=== PATIENT | female | born 1955 | race Hispanic/Latino ===

== ENCOUNTER 2017-01-20 17:14 | Inpatient (IN) | payer MEDICAID ==
[2017-01-20] MEDS ORDERED: ZEMURON IV ONE (17:15)
[2017-01-20] MEDS ORDERED: KETALAR ONE (17:15)
[2017-01-20] MEDS ORDERED: ATIVAN IV PRN (17:31)
[2017-01-20] MEDS ORDERED: VASELINE LIP THERAPY TP PRN (17:31)
[2017-01-20] MEDS ORDERED: ARTIFICIAL TEARS OPHTH OINT OU PRN (17:31)
--- NOTE | 2017-01-20 17:34 | Emergency Department Report ---
ED General Adult HPI - General Chief complaint: Dyspnea/Respdistress Stated complaint: RESPIRATORY ARREST Time Seen by Provider: 01/20/17 17:30 Source: EMS (verbal report received from EMS.ems notes not available at time of chart dictation) Mode of arrival: Stretcher Limitations: Other - History of Present Illness Initial comments: This is a 50-year-old female who was brought to the hospital by EMS receiving bag valve mask ventilation. Apparently she choked. No family is available at this time for collateral information. EMS does not exhibit there was, but they are not certain. EMS reported a "normal" fingerstick in the field. Upon arrival to the ER, the patient was obtunded, breathing sonorously, requiring bag -valve-mask ventilation. Her eyes would not open spontaneously, and she was initially not moving. Patient was set up for rapid sequence intubation. Prior to induction, patient was noted to be moving 4 extremities, it was then introduced with 100 mg of ketamine. She was then paralyzed with 100 mg of rocuronium. A Duong 4 video laryngoscope was inserted, and nonspecific particulate food material was noted in the hypopharynx, however no large foreign bodies were noted. A 7.5 endotracheal tube was then inserted under direct guidance, with appropriate post intubation change. Patient is currently intubated and paralyzed, laboratory studies are pending, CT scan is pending, x-ray of the chest and EKG are pending, no further information is available at this time. -: unknown Consistency: constant Improves with: none Worsens with: none - Related Data Allergies Allergy/AdvReac Type Severity Reaction Status Date / Time Unable to Assess Allergy Unverified 01/20/17 17:42 ED Review of Systems ROS: Stated complaint: RESPIRATORY ARREST Other details as noted in HPI Comment: Unobtainable due to pts medical conditions ED Past Medical Hx - Past Medical History Previous Medical History?: Yes Hx Hypertension: Yes Hx CVA: Yes - Social History Smoking Status: Unknown if ever smoked ED Physical Exam - General Limitations: Altered Mental Status, Other General appearance: obtunded - Head Head exam: Present: atraumatic, normocephalic - Eye Eye exam: Present: normal appearance, other (the bilateral pupils are 2-3 mm, and have minimal reactivity to light) - ENT ENT exam: Present: normal exam, mucous membranes moist, TM's normal bilaterally , normal external ear exam - Neck Neck exam: Present: normal inspection. Absent: tenderness - Respiratory Respiratory exam: Present: respiratory distress, rhonchi - Cardiovascular Cardiovascular Exam: Present: normal rhythm, tachycardia, normal heart sounds. Absent: systolic murmur, diastolic murmur, rubs, gallop - GI/Abdominal GI/Abdominal exam: Present: soft, normal bowel sounds. Absent: distended, tenderness, guarding, rebound, rigid, pulsatile mass - Rectal Rectal exam: Present: normal inspection - External exam: Present: normal external exam - Extremities Exam Extremities exam: Present: normal inspection, other (the compartments are soft. 2+ pulses noted in the upper and lower extremities). Absent: calf tenderness - Back Exam Back exam: Present: normal inspection. Absent: paraspinal tenderness, vertebral tenderness - Neurological Exam Neurological exam: Present: altered, other (patient moving 4 extremities prior to intubation) - Psychiatric Psychiatric exam: Present: other (patient is altered and obtunded) - Skin Skin exam: Present: warm, dry, intact, normal color. Absent: rash ED Course Vital Signs 01/20/17 01/20/17 01/20/17 17:15 17:30 18:19 Temperature 97.1 F L Pulse Rate 105 H 88 Respiratory 20 20 Rate Blood Pressure 130/45 Blood Pressure 122/92 [Left] O2 Sat by Pulse 100 98 95 Oximetry 01/20/17 01/20/17 01/20/17 18:21 18:25 19:05 Temperature Pulse Rate 97 H 96 H 93 H Respiratory 20 20 20 Rate Blood Pressure 137/93 133/91 89/60 Blood Pressure [Left] O2 Sat by Pulse 95 96 Oximetry 01/20/17 01/20/17 01/20/17 19:10 19:15 19:20 Temperature Pulse Rate 91 H 91 H 91 H Respiratory 20 20 20 Rate Blood Pressure 95/62 102/70 99/64 Blood Pressure [Left] O2 Sat by Pulse Oximetry 01/20/17 01/20/17 01/20/17 19:25 19:27 19:30 Temperature Pulse Rate 95 H 92 H 91 H Respiratory 20 20 Rate Blood Pressure 91/61 91/61 99/64 Blood Pressure [Left] O2 Sat by Pulse 100 Oximetry 01/20/17 01/20/17 01/20/17 19:35 19:40 19:45 Temperature Pulse Rate 91 H 90 89 Respiratory 20 20 20 Rate Blood Pressure 99/67 98/65 95/64 Blood Pressure [Left] O2 Sat by Pulse Oximetry 01/20/17 01/20/17 01/20/17 19:50 19:55 20:00 Temperature Pulse Rate 89 97 H 107 H Respiratory 20 20 20 Rate Blood Pressure 105/69 105/69 167/107 Blood Pressure [Left] O2 Sat by Pulse 97 100 Oximetry 01/20/17 01/20/17 01/20/17 20:05 20:36 20:40 Temperature Pulse Rate 115 H 126 H 120 H Respiratory 22 20 20 Rate Blood Pressure 176/117 173/111 154/94 Blood Pressure [Left] O2 Sat by Pulse 100 98 98 Oximetry 01/20/17 01/20/17 01/20/17 20:45 20:50 20:55 Temperature Pulse Rate 116 H 102 H 97 H Respiratory 20 20 20 Rate Blood Pressure 165/105 124/77 124/78 Blood Pressure [Left] O2 Sat by Pulse 100 100 Oximetry 01/20/17 01/20/17 01/20/17 21:00 21:05 21:10 Temperature Pulse Rate 94 H 92 H 91 H Respiratory 20 20 20 Rate Blood Pressure 127/78 122/80 117/76 Blood Pressure [Left] O2 Sat by Pulse Oximetry 01/20/17 01/20/17 01/20/17 21:15 21:20 21:25 Temperature Pulse Rate 89 88 88 Respiratory 20 20 20 Rate Blood Pressure 120/77 127/79 121/76 Blood Pressure [Left] O2 Sat by Pulse Oximetry 01/20/17 01/20/17 01/20/17 21:30 21:35 21:40 Temperature Pulse Rate 88 87 86 Respiratory 20 20 20 Rate Blood Pressure 126/79 129/80 126/78 Blood Pressure [Left] O2 Sat by Pulse Oximetry 01/20/17 01/20/17 01/20/17 21:45 21:50 21:55 Temperature Pulse Rate 87 87 85 Respiratory 20 20 20 Rate Blood Pressure 127/81 128/80 127/75 Blood Pressure [Left] O2 Sat by Pulse Oximetry 01/20/17 01/20/17 01/20/17 22:00 22:05 22:10 Temperature Pulse Rate 84 96 H 109 H Respiratory 20 20 17 Rate Blood Pressure 128/76 158/80 164/92 Blood Pressure [Left] O2 Sat by Pulse 99 100 Oximetry 01/20/17 01/20/17 01/20/17 22:15 22:20 22:25 Temperature Pulse Rate 99 H 93 H 93 H Respiratory 20 20 20 Rate Blood Pressure 131/83 126/82 131/86 Blood Pressure [Left] O2 Sat by Pulse 100 Oximetry 01/20/17 01/20/17 01/20/17 22:30 22:35 22:40 Temperature Pulse Rate 91 H 91 H 88 Respiratory 20 20 20 Rate Blood Pressure 130/82 125/80 123/78 Blood Pressure [Left] O2 Sat by Pulse 100 Oximetry 01/20/17 01/20/17 01/20/17 22:45 22:50 22:55 Temperature Pulse Rate 87 96 H 93 H Respiratory 20 20 20 Rate Blood Pressure 127/79 152/91 149/89 Blood Pressure [Left] O2 Sat by Pulse 100 100 100 Oximetry 01/20/17 01/20/17 01/20/17 23:00 23:04 23:05 Temperature Pulse Rate 88 87 88 Respiratory 20 20 Rate Blood Pressure 132/80 132/80 125/79 Blood Pressure [Left] O2 Sat by Pulse 100 100 100 Oximetry 01/20/17 01/20/17 01/20/17 23:10 23:15 23:20 Temperature Pulse Rate 88 85 86 Respiratory 20 20 20 Rate Blood Pressure 129/79 135/81 133/85 Blood Pressure [Left] O2 Sat by Pulse 100 100 Oximetry 01/20/17 01/20/17 01/20/17 23:25 23:30 23:35 Temperature Pulse Rate 85 84 85 Respiratory 20 20 21 Rate Blood Pressure 139/85 141/80 146/84 Blood Pressure [Left] O2 Sat by Pulse 100 100 Oximetry - Reevaluation(s) Reevaluation #1: 01/20/17 17:41 Differential diagnosis, including but not limited to: Intracranial injury, hypoxic arrest, pneumonitis, pneumonia, foreign body, electrolyte derangement, urinary tract infection Assessment and plan: 50-year-old female who is intubated status post respiratory arrest. She will be ventilated lung protective strategy CT scan of the brain, cervical spine, chest pending, laboratory studies, EKG, ancillary studies pending. I will discuss with critical care once all of her data points have returned. Reevaluation #2: 01/20/17 20:03 Laboratory studies reviewed and are appreciated. Urinalysis suggests a urinary tract infection. Patient had transient hypotension, IV fluids ordered. CT scan is still pending. ABG 2 has demonstrated hypoxemia, patient will have FiO2 up titrated to 100%. Reevaluation #3: 01/20/17 21:[address] scan of the brain is negative Reevaluation #4: 01/20/17 21:34 CT scan of the chest demonstrates chronic emphysematous changes. Reevaluation #5: 01/20/17 21:40 Dr Lopez accepts patient to the medical service - Consultations Consultation #1: 01/20/17 19:25 Case is discussed with critical care physician on-call, Dr. Heart, who agrees with plan, he will see the patient in consultation. - EJ/Peripheral Line Neck L Time Out Performed: No (emergency) Indications: multiple IV sites needed Skin Cleansed in Sterile Fashion: Yes Size: 18 Dressing Placed: Tegaderm Patient Tolerated Procedure: well - Intubation Time Out Performed: No (emergency) Sedative: Ketamine Mg Given: 100 Paralytic: Rocuronium Mg Given: 100 Laryngoscope: fiberoptic video scope Size: 4 Assist Device Used: fiberoptic device ET Tube Size: 7.5 Tube Secured Depth (cm): 23 Tube Secured Location: lips Tube Placement Confirmation: visualized tube passing t Patient Tolerated Procedure: well Intubation Complications: none Additional Comments: Patient is placed on a nasal cannula, 15 L/m. Perceives [id number] ventilation, and does not desaturate. Most likely aspirated prior to intubation. ED Medical Decision Making - Lab Data Result diagrams: 01/20/17 17:55 01/20/17 17:22 Vital Signs 01/20/17 01/20/17 17:15 17:30 Temperature 97.1 F L Pulse Rate 105 H 88 Respiratory 20 Rate Blood Pressure 130/45 Blood Pressure 122/92 [Left] O2 Sat by Pulse 100 98 Oximetry Lab Results 01/20/17 01/20/17 01/20/17 Range/Units 17:22 17:22 17:22 WBC (4.5-11.0) K/mm3 RBC (3.65-5.03) M/mm3 Hgb (10.1-14.3) gm/dl Hct (30.3-42.9) % MCV (79-97) fl MCH (28-32) pg MCHC (30-34) % RDW (13.2-15.2) % Plt Count (140-440) K/mm3 Lymph % (Auto) (13.4-35.0) % Towns % (Auto) (0.0-7.3) % Eos % (Auto) (0.0-4.3) % Baso % (Auto) (0.0-1.8) % Lymph # (1.2-5.4) K/mm3 Towns # (0.0-0.8) K/mm3 Eos # (0.0-0.4) K/mm3 Baso # (0.0-0.1) K/mm3 Seg Neutrophils % (40.0-70.0) % Seg Neutrophils # (1.8-7.7) K/mm3 Lactic Acid 1.40 (0.7-2.0) mmol/L Troponin T < 0.010 (0.00-0.029) ng/mL Salicylates < 0.3 L (2.8-20.0) mg/dL Acetaminophen (10.0-30.0) ug/mL Plasma/Serum Alcohol (0-0.07) gm% Blood Type 01/20/17 01/20/17 01/20/17 Range/Units 17:22 17:22 17:55 WBC 4.1 L (4.5-11.0) K/mm3 RBC 4.06 (3.65-5.03) M/mm3 Hgb 11.6 (10.1-14.3) gm/dl Hct 36.2 (30.3-42.9) % MCV 89 (79-97) fl MCH 29 (28-32) pg MCHC 32 (30-34) % RDW 15.6 H (13.2-15.2) % Plt Count 179 (140-440) K/mm3 Lymph % (Auto) 20.2 (13.4-35.0) % Towns % (Auto) 8.9 H (0.0-7.3) % Eos % (Auto) 2.1 (0.0-4.3) % Baso % (Auto) 0.4 (0.0-1.8) % Lymph # 0.8 L (1.2-5.4) K/mm3 Towns # 0.4 (0.0-0.8) K/mm3 Eos # 0.1 (0.0-0.4) K/mm3 Baso # 0.0 (0.0-0.1) K/mm3 Seg Neutrophils % 68.4 (40.0-70.0) % Seg Neutrophils # 2.8 (1.8-7.7) K/mm3 Lactic Acid (0.7-2.0) mmol/L Troponin T (0.00-0.029) ng/mL Salicylates (2.8-20.0) mg/dL Acetaminophen < 15.0 (10.0-30.0) ug/mL Plasma/Serum Alcohol < 0.01 (0-0.07) gm% Blood Type 01/20/17 Range/Units 17:55 WBC (4.5-11.0) K/mm3 RBC (3.65-5.03) M/mm3 Hgb (10.1-14.3) gm/dl Hct (30.3-42.9) % MCV (79-97) fl MCH (28-32) pg MCHC (30-34) % RDW (13.2-15.2) % Plt Count (140-440) K/mm3 Lymph % (Auto) (13.4-35.0) % Towns % (Auto) (0.0-7.3) % Eos % (Auto) (0.0-4.3) % Baso % (Auto) (0.0-1.8) % Lymph # (1.2-5.4) K/mm3 Towns # (0.0-0.8) K/mm3 Eos # (0.0-0.4) K/mm3 Baso # (0.0-0.1) K/mm3 Seg Neutrophils % (40.0-70.0) % Seg Neutrophils # (1.8-7.7) K/mm3 Lactic Acid (0.7-2.0) mmol/L Troponin T (0.00-0.029) ng/mL Salicylates (2.8-20.0) mg/dL Acetaminophen (10.0-30.0) ug/mL Plasma/Serum Alcohol (0-0.07) gm% Blood Type A POSITIVE - Radiology Data Radiology results: image reviewed interpreted by me: X-ray the chest demonstrates no obvious foreign body, appropriate position of endotracheal tube and orogastric tube Critical Care Time: Yes Critical care time in (mins) excluding proc time.: 45 Critical care attestation.: If time is entered above; I have spent that time in minutes in the direct care of this critically ill patient, excluding procedure time. ED Disposition Clinical Impression: Respiratory arrest Disposition: DC-09 OP ADMIT IP TO THIS HOSP Is pt being admited?: Yes Condition: Critical
[2017-01-20 17:48] LABS: Urine Drugs of Abuse Note Disclamer
[2017-01-20] MEDS ORDERED: NACL 0.9% 500 ML IV SCH (18:00)
[2017-01-20 18:10] LABS: Basophils % (Auto) 0.4 % (0.0-1.8); Eosinophils % (Auto) 2.1 % (0.0-4.3); Hematocrit 36.2 % (30.3-42.9); Hemoglobin 11.6 gm/dl (10.1-14.3); Mean Corpuscular HGB Conc 32 % (30-34); Mean Corpuscular Hemoglobin 29 pg (28-32); Mean Corpuscular Volume 89 fl (79-97); Platelet Count 179 K/mm3 (140-440); Red Blood Count 4.06 M/mm3 (3.65-5.03); Red Cell Distribution Width 15.6 % (13.2-15.2); White Blood Count 4.1 K/mm3 (4.5-11.0)
[2017-01-20] MEDS: fentaNYL DRIP Premix 2,000 MCG/100 ML BAG IV SCH (18:16)
[2017-01-20 18:20] LABS: Bilirubin,Urine NEG (Negative); Blood,Urine NEG (Negative); Ketones,Urine NEG (Negative); Leukocyte Esterase,Urine LG (Negative); Nitrite,Urine NEG (Negative)
[2017-01-20 18:23] LABS: WBC,Urine > 182.0 /HPF (0.0-6.0)
[2017-01-20 18:38] LABS: ISTAT Base Excess 1; ISTAT HCO3 26.4; ISTAT PCO2 45.7 (35-45); ISTAT PO2 69 (80-105); ISTAT SO2 93; ISTAT TCO2 28
[2017-01-20 18:49] LABS: INR 1.03 (0.87-1.13)
[2017-01-20 18:50] LABS: Partial Thromboplastin Time 37.7 Sec. (24.2-36.6)
[2017-01-20] MEDS ORDERED: ROCEPHIN/NS 1 GM/50 ML 1 GM/50 ML BAG IV ONE (18:53)
[2017-01-20 19:08] LABS: Alanine Aminotransferase 24 units/L (7-56); Albumin 3.6 g/dL (3.9-5); Albumin/Globulin Ratio 1.1 %; Alkaline Phosphatase 101 units/L (35-129); Anion Gap 17 mmol/L; BUN/Creatinine Ratio 20; Blood Urea Nitrogen 16 mg/dL (7-17); Calcium 8.7 mg/dL (8.4-10.2); Carbon Dioxide 26 mmol/L (22-30); Chloride 96.7 mmol/L (98-107); Creatine Kinase 47 units/L (30-135); Glucose 140 mg/dL (65-100); Potassium 4.1 mmol/L (3.6-5.0); Sodium 136 mmol/L (137-145); Total Protein 6.9 g/dL (6.3-8.2)
[2017-01-20] MEDS ORDERED: NACL 0.9% 1000 ML 2,000 ML IV ONE (19:08)
[2017-01-20 20:05] LABS: ISTAT Base Excess 2; ISTAT HCO3 27.5; ISTAT PCO2 48.5 (35-45); ISTAT PH 7.362 (7.35-7.45); ISTAT PO2 64 (80-105); ISTAT SO2 91; ISTAT TCO2 29
--- NOTE | 2017-01-20 20:45 | Cat Scan Report ---
FINAL REPORT PROCEDURE: CT HEAD/BRAIN WO CON TECHNIQUE: Computerized tomography of the head was performed without contrast material. HISTORY: Altered Mental Status COMPARISON: No prior studies are available for comparison. FINDINGS: Limited by streak and motion artifact. Skull and scalp: Normal. Paranasal sinuses: Mucosal thickening right maxillary sinus.. Ventricles and subarachnoid spaces: Normal. Cerebrum: No evidence of hemorrhage, acute infarction or mass . Cerebellum and brainstem: No evidence of hemorrhage, acute infarction or mass. Vasculature: Normal. Comments: Portions of NG tube endotracheal tube seen IMPRESSION: No definite evidence of acute intracranial pathology. If symptoms and or concern persists recommend MRI.
--- NOTE | 2017-01-20 21:22 | Cat Scan Report ---
FINAL REPORT PROCEDURE: CT CHEST WO CON TECHNIQUE: Computerized axial tomography of the chest was performed without contrast material. This study is performed without intravenous contrast and the sensitivity for pathology, including neoplasms, adenopathy, abscess, pulmonary embolism and aortic dissection, is reduced. HISTORY: ams COMPARISON: No prior studies are available for comparison. TECHNICAL QUALITY: Satisfactory. FINDINGS: Heart and pericardium: Normal. Thoracic aorta: Normal. Pulmonary vasculature: Normal. Lymph nodes: No enlarged thoracic lymph nodes. Lungs: Moderate diffuse pulmonary emphysema. Lower lung zone atelectasis. Central bronchiectasis and peribronchial cuffing. Pleural space: No effusion, thickening, or pneumothorax. Musculoskeletal structures: No significant abnormality. Upper abdominal structures: Possible heterogeneous gallbladder contents and thickened gallbladder wall. Moderate pancreatic atrophy. Endotracheal tube NG tube appear in place IMPRESSION: COPD with posterior lower lung zone atelectasis
--- NOTE | 2017-01-20 21:54 | Cat Scan Report ---
FINAL REPORT PROCEDURE: CT CERVICAL SPINE WO CON TECHNIQUE: Computerized tomography of the cervical spine was performed from the skull base to T1 without contrast material. HISTORY: ams COMPARISON: No prior studies are available for comparison. FINDINGS: There is motion artifact which limits the sensitivity of the examination. There are multilevel degenerative disc changes. There is reversal of cervical lordosis. There is grade 1 anterior spondylolisthesis of C4 over C5 due to facet arthropathy. There is loss of disc height with osteophytic ridging at C6-C7. No obvious fracture is seen. The prevertebral soft tissues are normal in thickness. IMPRESSION: Limited study due to motion artifact. No obvious fractures seen. There are degenerative changes as described..
[2017-01-20] MEDS ORDERED: DIPRIVAN 10 MG/ML 1,000 MG/100 ML BOTTLE IV ONE (22:15)
[2017-01-20] MEDS: DIPRIVAN 10 MG/ML 1,000 MG/100 ML BOTTLE IV SCH (22:20)
--- NOTE | 2017-01-20 22:57 | History and Physical Report ---
History of Present Illness Date of examination: 01/20/17 Chief complaint: Respiratory arrest History of present illness: 62-year-old white female was brought via EMS on bag and mask ventilation. In the emergency department patient was intubated, on mechanical ventilation and sedated. Couldn't get history and review of systems because patient is sedated. Per ED report there was non specific particulate food material was noted on hypopharynx. UDS is positive for benzodiazepines, opiates and methadone. UA was positive for UTI. Past History Past Medical History: other (couldn't obtained because the patient is sedated, no family members in the room.) Past Surgical History: Other (couldn't obtained because the patient is sedated, no family members in the room.) Social history: other (couldn't obtained because the patient is sedated, no family members in the room.) Family history: other (couldn't obtained because the patient is sedated, no family members in the room.) Medications and Allergies Allergies Allergy/AdvReac Type Severity Reaction Status Date / Time Penicillins Allergy Unknown Verified 01/21/17 00:42 Active Meds: Active Medications Heparin Sodium (Porcine) (Heparin) 5,000 unit SUB-Q Q8HR CYNTHIA Hydrophilic Ointment (Vaseline Lip Therapy) 1 applic TP Q2HR PRN PRN Reason: Dry Lips Fentanyl Citrate (Fentanyl Drip Premix) 2,000 mcg in 100 mls @ 3.175 mls/hr IV TITR CYNTHIA; 1 MCG/KG/HR PRN Reason: Protocol Last Admin: 01/20/17 18:16 Dose: 1 mcg/kg/hr, 3.175 mls/hr Propofol (Diprivan 10 Mg/Ml) 1,000 mg in 100 mls @ 1.905 mls/hr IV TITR CYNTHIA; 5 MCG/KG/MIN PRN Reason: Protocol Last Admin: 01/20/17 22:20 Dose: 10 mcg/kg/min, 3.81 mls/hr Piperacillin Sod/Tazobactam Sod (Zosyn/Ns 3.375gm/50ml) 3.375 gm in 50 mls @ 100 mls/hr IV Q8HR CYNTHIA PRN Reason: Protocol Lorazepam (Ativan) 4 mg IV Q4HR PRN PRN Reason: Agitation Multi-Ingred Cream/Lotion/Oil/Oint (Artificial Tears Ophth Oint) 1 applic OU Q4HR PRN PRN Reason: Dry Eye(s) Sodium Chloride (Nacl 0.9% 500 Ml) 1 ml IV DIRECT CYNTHIA Review of Systems ROS unobtainable: due to endotracheal tube (couldn't obtained because the patient is sedated, no family members in the room.), due to mental status ( couldn't obtained because the patient is sedated, no family members in the room. ) Exam - Physical Exam Narrative exam: Patient was intubated and on mechanical ventilation The patient appeared well nourished and normally developed. Vital signs as documented. Head exam is unremarkable. No scleral icterus . Neck is without jugular venous distension, thyromegaly, or carotid bruits. Lungs are clear to auscultation. Cardiac exam reveals regular rate and Rhythm. First and second heart sounds normal. No murmurs, rubs or gallops. Abdominal exam reveals normal bowel sounds, no masses, no organomegaly and no aortic enlargement. Extremities are nonedematous and both femoral and pedal pulses are normal. 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 - Constitutional Vitals: Temp Pulse Resp BP Pulse Ox 97.1 F L 92 H 20 91/61 100 01/20/17 17:15 01/20/17 19:27 01/20/17 18:25 01/20/17 19:27 01/20/17 19:27 Results - Labs CBC & Chem 7: 01/20/17 17:55 01/20/17 17:22 Labs: Laboratory Last Values WBC 4.1 K/mm3 (4.5-11.0) L 01/20/17 17:55 RBC 4.06 M/mm3 (3.65-5.03) 01/20/17 17:55 Hgb 11.6 gm/dl (10.1-14.3) 01/20/17 17:55 Hct 36.2 % (30.3-42.9) 01/20/17 17:55 MCV 89 fl (79-97) 01/20/17 17:55 MCH 29 pg (28-32) 01/20/17 17:55 MCHC 32 % (30-34) 01/20/17 17:55 RDW 15.6 % (13.2-15.2) H 01/20/17 17:55 Plt Count 179 K/mm3 (140-440) 01/20/17 17:55 Lymph % (Auto) 20.2 % (13.4-35.0) 01/20/17 17:55 [place] % (Auto) 8.9 % (0.0-7.3) H 01/20/17 17:55 Eos % (Auto) 2.1 % (0.0-4.3) 01/20/17 17:55 Baso % (Auto) 0.4 % (0.0-1.8) 01/20/17 17:55 Lymph # 0.8 K/mm3 (1.2-5.4) L 01/20/17 17:55 [place] # 0.4 K/mm3 (0.0-0.8) 01/20/17 17:55 Eos # 0.1 K/mm3 (0.0-0.4) 01/20/17 17:55 Baso # 0.0 K/mm3 (0.0-0.1) 01/20/17 17:55 Seg Neutrophils % 68.4 % (40.0-70.0) 01/20/17 17:55 Seg Neutrophils # 2.8 K/mm3 (1.8-7.7) 01/20/17 17:55 PT 14.0 Sec. (12.2-14.9) 01/20/17 17:22 INR 1.03 (0.87-1.13) 01/20/17 17:22 APTT 37.7 Sec. (24.2-36.6) H 01/20/17 17:22 POC ABG pH 7.362 (7.35-7.45) 01/20/17 20:03 POC ABG pCO2 48.5 (35-45) H 01/20/17 20:03 POC ABG pO2 64 (80-105) L 01/20/17 20:03 POC ABG HCO3 27.5 01/20/17 20:03 POC ABG Total CO2 29 01/20/17 20:03 POC ABG O2 Sat 91 01/20/17 20:03 POC ABG Base Excess 2 01/20/17 20:03 FiO2 70 % 01/20/17 20:03 Sodium 136 mmol/L (137-145) L 01/20/17 17:22 Potassium 4.1 mmol/L (3.6-5.0) 01/20/17 17:22 Chloride 96.7 mmol/L (98-107) L 01/20/17 17:22 Carbon Dioxide 26 mmol/L (22-30) 01/20/17 17:22 Anion Gap 17 mmol/L 01/20/17 17:22 BUN 16 mg/dL (7-17) 01/20/17 17:22 Creatinine 0.8 mg/dL (0.7-1.2) 01/20/17 17:22 Estimated GFR > 60 ml/min 01/20/17 17:22 BUN/Creatinine Ratio 20 % 01/20/17 17:22 Glucose 140 mg/dL (65-100) H 01/20/17 17: POC Glucose 152 (70-105) H 01/20/17 17:55 Lactic Acid 1.00 mmol/L (0.7-2.0) 01/20/17 19:11 Calcium 8.7 mg/dL (8.4-10.2) 01/20/17 17:22 Total Bilirubin 0.40 mg/dL (0.1-1.2) 01/20/17 17:22 AST 48 units/L (5-40) H 01/20/17 17:22 ALT 24 units/L (7-56) 01/20/17 17:22 Alkaline Phosphatase 101 units/L (35-129) 01/20/17 17:22 Ammonia 34.0 umol/L (25-60) 01/20/17 17:55 Total Creatine Kinase 47 units/L (30-135) 01/20/17 17:22 Troponin T < 0.010 ng/mL (0.00-0.029) 01/20/17 17:22 Total Protein 6.9 g/dL (6.3-8.2) 01/20/17 17:22 Albumin 3.6 g/dL (3.9-5) L 01/20/17 17: Albumin/Globulin Ratio 1.1 % 01/20/17 17: TSH 4.180 mlU/mL (0.270-4.200) 01/20/17 17:22 Urine Color Ramandeep (Yellow) 01/20/17 17:22 Urine Turbidity Clear (Clear) 01/20/17 17:22 Urine pH 5.0 (5.0-7.0) 01/20/17 17: Ur Specific [place] 1.018 (1.003-1.030) 01/20/17 17: Urine Protein 100 mg/dl mg/dL (Negative) 01/20/17 17:22 Urine Glucose (UA) Neg mg/dL (Negative) 01/20/17 17:22 Urine Ketones Neg mg/dL (Negative) 01/20/17 17: Urine Blood Neg (Negative) 01/20/17 17: Urine Nitrite Neg (Negative) 01/20/17 17: Urine Bilirubin Neg (Negative) 01/20/17 17: Urine Urobilinogen 4.0 mg/dL (<2.0) 01/20/17 17: Ur Leukocyte Esterase Lg (Negative) 01/20/17 17: Urine WBC (Auto) > 182.0 /HPF (0.0-6.0) H 01/20/17 17: Urine RBC (Auto) 42.0 /HPF (0.0-6.0) 01/20/17 17: Urine WBC Clumps 3+ /HPF 01/20/17 17: Salicylates < 0.3 mg/dL (2.8-20.0) L 01/20/17 17:22 Urine Opiates Screen Presumptive positive 01/20/17 17: Urine Methadone Screen Presumptive positive 01/20/17 17:22 Acetaminophen < 15.0 ug/mL (10.0-30.0) 01/20/17 17:22 Ur Barbiturates Screen Presumptive negative 01/20/17 17: Ur Phencyclidine Scrn Presumptive negative 01/20/17 17:22 Ur Amphetamines Screen Presumptive negative 01/20/17 17:22 U Benzodiazepines Scrn Presumptive positive 01/20/17 17:22 Urine Cocaine Screen Presumptive negative 01/20/17 17: U Marijuana (THC) Screen Presumptive negative 01/20/17 17: Drugs of Abuse Note Disclamer 01/20/17 17: Plasma/Serum Alcohol < 0.01 gm% (0-0.07) 01/20/17 17:22 Blood Type A POSITIVE 01/20/17:55 Antibody Screen Negative 01/20/17 17:55 - Imaging and Cardiology CT scan - chest: report reviewed (emphysematous changes) CT Scan - head: report reviewed (no acute intracranial process identified) Assessment and Plan Assessment and plan: Acute hypoxic respiratory failure Respiratory arrest Possible aspiration pneumonitis UTI Drug abuse -Patient is intubated and on mechanical ventilation -Sulfuric Acid Plant Supervisor was consulted -Patient started with IV fluids and IV Zosyn that can cover both the aspiration and UTI - Blood and urine culture obtained DVT prophylaxis - heparin Disposition - Admit to ICU. The high probability of a clinically significant, sudden or life threatening deterioration of the [respiratory] system(s) required my full and direct attention, intervention and personal management. The aggregate critical care time was [31] minutes. This time is in addition to time spent performing reported procedures but includes the following: [x] Data Review and interpretation [x] Patient assessment and monitoring of vital signs [x] Documentation [x] Medication orders and management Advance Directives: No VTE prophylaxis?: Chemical Plan of care discussed with patient/family: No
[2017-01-21] MEDS ORDERED: ZOSYN/NS 3.375GM/50ML 3.375 GM/50 ML BAG IV SCH
[2017-01-21] MEDS: LEVAQUIN 750MG/150ML 750 MG/150 ML BAG IV SCH ×2 (04:54→10:46)
[2017-01-21 05:18] LABS: ISTAT Base Excess 7; ISTAT PCO2 47.6 (35-45); ISTAT PH 7.422 (7.35-7.45); ISTAT PO2 451 (80-105); ISTAT SO2 100; ISTAT TCO2 32
[2017-01-21] MEDS: HEPARIN SUB-Q SCH ×3 (05:38→21:28)
[2017-01-21] MEDS: fentaNYL DRIP Premix 2,000 MCG/100 ML BAG IV SCH (10:36)
[2017-01-21] MEDS: DIPRIVAN 10 MG/ML 1,000 MG/100 ML BOTTLE IV SCH ×4 (10:44→23:11)
--- NOTE | 2017-01-21 10:51 | XRay Report ---
AP CHEST: HISTORY: Altered mental status, endotracheal tube placement This exam is just presented to me for interpretation. No comparison. Cardiac defibrillator pads are in place. An endotracheal tube has been inserted which terminates 3.5 cm superior to the radha. A nasogastric tube terminates in the fundus of the stomach. AP view of the chest demonstrates a normal mediastinal and cardiac contour with clear lungs and normal bony and soft tissue structures. IMPRESSION: Unremarkable AP chest. Adequate placement of lines and tubes.
--- NOTE | 2017-01-21 11:52 | Consultation ---
History of Present Illness Consult date: 01/21/17 Requesting physician: MAURICE ARTEAGA Reason for consult: other (Acute Hypoxemic Respiratory Failure) History of present illness: PULMONARY/CCM CONSULT NOTE (Full dictation # [id number]) Please see dictated notes for full details Past History Past Medical History: other (couldn't obtained because the patient is sedated, no family members in the room.) Past Surgical History: Other (couldn't obtained because the patient is sedated, no family members in the room.) Social history: other (couldn't obtained because the patient is sedated, no family members in the room.) Family history: other (couldn't obtained because the patient is sedated, no family members in the room.) Medications and Allergies Allergies Allergy/AdvReac Type Severity Reaction Status Date / Time Penicillins Allergy Unknown Verified 01/21/17 00:42 Active Meds: Active Medications Heparin Sodium (Porcine) (Heparin) 5,000 unit SUB-Q Q8HR CYNTHIA Last Admin: 01/21/17 05:38 Dose: 5,000 unit Hydrophilic Ointment (Vaseline Lip Therapy) 1 applic TP Q2HR PRN PRN Reason: Dry Lips Fentanyl Citrate (Fentanyl Drip Premix) 2,000 mcg in 100 mls @ 3.175 mls/hr IV TITR CYNTHIA; 1 MCG/KG/HR PRN Reason: Protocol Last Admin: 01/21/17 10:36 Dose: 2 mcg/kg/hr, 6.35 mls/hr Propofol (Diprivan 10 Mg/Ml) 1,000 mg in 100 mls @ 1.905 mls/hr IV TITR CNYTHIA; 5 MCG/KG/MIN PRN Reason: Protocol Last Admin: 01/21/17 10:44 Dose: 30 mcg/kg/min, 11.431 mls/hr Levofloxacin/Dextrose (Levaquin 750mg/150ml) 750 mg in 150 mls @ 100 mls/hr IV Q24HR CYNTHIA PRN Reason: Protocol Last Admin: 01/21/17 10:46 Dose: Not Given Lorazepam (Ativan) 4 mg IV Q4HR PRN PRN Reason: Agitation Multi-Ingred Cream/Lotion/Oil/Oint (Artificial Tears Ophth Oint) 1 applic OU Q4HR PRN PRN Reason: Dry Eye(s) Sodium Chloride (Nacl 0.9% 500 Ml) 1 ml IV DIRECT CYNTHIA Physical Examination Vital signs: Vital Signs Temp Pulse Resp BP Pulse Ox 97.1 F L 105 H 20 122/92 100 01/20/17 17:15 01/20/17 17:15 01/20/17 17:15 01/20/17 17:15 01/20/17 17:15 Results - Laboratory Findings CBC and BMP: 01/20/17 17:55 01/20/17 17:22 ABG POC ABG pH 7.422 (7.35-7.45) 01/21/17 04:25 POC ABG pCO2 47.6 (35-45) H 01/21/17 04:25 POC ABG pO2 451 (80-105) H 01/21/17 04:25 POC ABG HCO3 31.0 01/21/17 04:25 POC ABG Total CO2 32 01/21/17 04:25 POC ABG O2 Sat 100 01/21/17 04:25 PT/INR, D-dimer PT 14.0 Sec. (12.2-14.9) 01/20/17 17:22 INR 1.03 (0.87-1.13) 01/20/17 17:22 Abnormal lab findings: Abnormal Labs 01/20/17 01/20/17 01/20/17 17:22 17:22 17:22 WBC RDW [place] % (Auto) Lymph # APTT 37.7 H POC ABG pCO2 POC ABG pO2 Sodium 136 L Chloride 96.7 L Glucose 140 H POC Glucose AST 48 H Albumin 3.6 L Urine WBC (Auto) Salicylates < 0.3 L 01/20/17 01/20/17 01/20/17 17:22 17:55 17:55 WBC 4.1 L RDW 15.6 H [place] % (Auto) 8.9 H Lymph # 0.8 L APTT POC ABG pCO2 POC ABG pO2 Sodium Chloride Glucose POC Glucose 152 H AST Albumin Urine WBC (Auto) > 182.0 H Salicylates 01/20/17 01/20/17 01/21/17 18:29 20:03 04:25 WBC RDW [place] % (Auto) Lymph # APTT POC ABG pCO2 45.7 H 48.5 H 47.6 H POC ABG pO2 69 L 64 L 451 H Sodium Chloride Glucose POC Glucose AST Albumin Urine WBC (Auto) Salicylates
[2017-01-21] MEDS ORDERED: SEROquel 50 MG, SEROquel 100 MG PO SCH (14:00)
[2017-01-21] MEDS: DUONEB *Not for PRN Use IH SCH ×2 (14:48→19:34)
--- NOTE | 2017-01-21 16:50 | Progress Note ---
Assessment and Plan Acute hypoxic respiratory failure -Patient is intubated and on mechanical ventilation - hari from aspiration -Smocking Machine Operator was consulted -Patient started with IV fluids and IV Zosyn that can cover both the aspiration and UTI - Blood and urine culture obtained Possible aspiration pneumonitis - cont abx, follow sputum cx UTI- on abx, follow cx Drug abuse - will cemetery counselor when medically stable DVT prophylaxis - heparin The high probability of a clinically significant, sudden or life threatening deterioration of the [respiratory] system(s) required my full and direct attention, intervention and personal management. The aggregate critical care time was [31] minutes. This time is in addition to time spent performing reported procedures but includes the following: [x] Data Review and interpretation [x] Patient assessment and monitoring of vital signs [x] Documentation [x] Medication orders and management Subjective Date of service: 01/21/17 Interval history: Patient seen and examined. Medical records and medication list reviewed. No acute event overnight noted by the RN. Patient remained intubated Objective - Exam Narrative Exam: Patient was intubated and on mechanical ventilation The patient appeared well nourished and normally developed. Vital signs as documented. Head exam is unremarkable.No scleral icterus . Neck is without jugular venous distension, thyromegaly, or carotid bruits. Lungs are clear to auscultation. Cardiac exam reveals regular rate and Rhythm. First and second heart sounds normal. No murmurs, rubs or gallops. Abdominal exam reveals normal bowel sounds, no masses, no organomegaly and no aortic enlargement. Extremities are nonedematous and both femoral and pedal pulses are normal. SENIOR SYSTEMS ARCHITECT: Sedated. Psych: unable to assess - Constitutional Vitals: Vital Signs - 12hr 01/21/17 01/21/17 01/21/17 05:00 05:15 05:30 Temperature Pulse Rate 107 H 98 H 98 H Pulse Rate [ Anterior Bilateral Throughout] Respiratory 19 20 20 Rate Respiratory Rate [Anterior Bilateral Throughout] Blood Pressure 152/86 119/64 108/66 O2 Sat by Pulse 100 100 100 Oximetry 01/21/17 01/21/17 01/21/17 05:45 06:00 06:06 Temperature 97.3 F L Pulse Rate 97 H 95 H Pulse Rate [ Anterior Bilateral Throughout] Respiratory 20 19 Rate Respiratory Rate [Anterior Bilateral Throughout] Blood Pressure 107/63 107/63 O2 Sat by Pulse 100 100 Oximetry 01/21/17 01/21/17 01/21/17 06:15 06:30 06:45 Temperature Pulse Rate 95 H 94 H 92 H Pulse Rate [ Anterior Bilateral Throughout] Respiratory 20 20 20 Rate Respiratory Rate [Anterior Bilateral Throughout] Blood Pressure 103/61 98/58 97/55 O2 Sat by Pulse 100 100 100 Oximetry 01/21/17 01/21/17 01/21/17 07:00 07:15 07:30 Temperature Pulse Rate 90 90 89 Pulse Rate [ Anterior Bilateral Throughout] Respiratory 20 20 20 Rate Respiratory Rate [Anterior Bilateral Throughout] Blood Pressure 90/51 92/53 86/48 O2 Sat by Pulse 100 100 100 Oximetry 01/21/17 01/21/17 01/21/17 07:45 07:48 07:50 Temperature 100.2 F H Pulse Rate 89 89 Pulse Rate [ Anterior Bilateral Throughout] Respiratory 20 Rate Respiratory Rate [Anterior Bilateral Throughout] Blood Pressure 92/52 92/52 O2 Sat by Pulse 100 100 Oximetry 01/21/17 01/21/17 01/21/17 08:00 08:15 08:30 Temperature Pulse Rate 88 90 91 H Pulse Rate [ Anterior Bilateral Throughout] Respiratory 20 20 19 Rate Respiratory Rate [Anterior Bilateral Throughout] Blood Pressure 110/63 102/57 103/61 O2 Sat by Pulse 100 100 100 Oximetry 01/21/17 01/21/17 01/21/17 08:45 09:00 09:15 Temperature Pulse Rate 93 H 97 H 99 H Pulse Rate [ Anterior Bilateral Throughout] Respiratory 19 19 19 Rate Respiratory Rate [Anterior Bilateral Throughout] Blood Pressure 107/60 119/68 108/59 O2 Sat by Pulse 100 100 100 Oximetry 01/21/17 01/21/17 01/21/17 09:30 09:45 10:00 Temperature Pulse Rate 98 H 98 H 98 H Pulse Rate [ Anterior Bilateral Throughout] Respiratory 19 19 19 Rate Respiratory Rate [Anterior Bilateral Throughout] Blood Pressure 97/55 90/52 86/52 O2 Sat by Pulse 100 99 99 Oximetry 01/21/17 01/21/17 01/21/17 10:15 10:30 10:45 Temperature Pulse Rate 97 H 97 H 99 H Pulse Rate [ Anterior Bilateral Throughout] Respiratory 19 19 20 Rate Respiratory Rate [Anterior Bilateral Throughout] Blood Pressure 95/56 103/60 102/62 O2 Sat by Pulse 99 100 98 Oximetry 1101/21/17 01/21/17 11:00 11:16 11:30 Temperature Pulse Rate 99 H 97 H 96 H Pulse Rate [ Anterior Bilateral Throughout] Respiratory 20 20 20 Rate Respiratory Rate [Anterior Bilateral Throughout] Blood Pressure 99/64 99/64 104/71 O2 Sat by Pulse 97 98 99 Oximetry 01/21/17 01/21/17 01/21/17 11:46 11:49 12:00 Temperature 99.1 F Pulse Rate 95 H 94 H Pulse Rate [ Anterior Bilateral Throughout] Respiratory 20 20 Rate Respiratory Rate [Anterior Bilateral Throughout] Blood Pressure 104/71 105/66 O2 Sat by Pulse 99 98 Oximetry 01/21/17 01/21/17 01/21/17 12:16 12:30 12:46 Temperature Pulse Rate 94 H 109 H 110 H Pulse Rate [ Anterior Bilateral Throughout] Respiratory 20 14 26 H Rate Respiratory Rate [Anterior Bilateral Throughout] Blood Pressure 105/66 105/66 148/89 O2 Sat by Pulse 98 99 99 Oximetry 01/21/17 01/21/17 01/21/17 13:00 13:16 13:30 Temperature Pulse Rate 114 H 106 H 105 H Pulse Rate [ Anterior Bilateral Throughout] Respiratory 13 28 H 22 Rate Respiratory Rate [Anterior Bilateral Throughout] Blood Pressure 158/89 158/89 123/78 O2 Sat by Pulse 99 100 100 Oximetry 01/21/17 01/21/17 01/21/17 13:45 14:00 14:15 Temperature Pulse Rate 105 H 106 H 111 H Pulse Rate [ Anterior Bilateral Throughout] Respiratory 20 20 22 Rate Respiratory Rate [Anterior Bilateral Throughout] Blood Pressure 123/78 120/79 120/79 O2 Sat by Pulse 99 99 100 Oximetry 01/21/17 01/21/17 01/21/17 14:30 14:45 14:49 Temperature Pulse Rate 119 H 106 H Pulse Rate [ 104 H Anterior Bilateral Throughout] Respiratory 19 20 Rate Respiratory 20 Rate [Anterior Bilateral Throughout] Blood Pressure 143/91 120/79 O2 Sat by Pulse 99 100 Oximetry 01/21/17 01/21/17 01/21/17 15:00 15:15 15:30 Temperature Pulse Rate 103 H 105 H 100 H Pulse Rate [ 104 H Anterior Bilateral Throughout] Respiratory 20 22 20 Rate Respiratory 20 Rate [Anterior Bilateral Throughout] Blood Pressure 134/84 134/84 116/75 O2 Sat by Pulse 98 99 99 Oximetry 01/21/17 01/21/17 01/21/17 15:45 16:00 16:15 Temperature 98.8 F Pulse Rate 97 H 94 H 94 H Pulse Rate [ Anterior Bilateral Throughout] Respiratory 20 20 20 Rate Respiratory Rate [Anterior Bilateral Throughout] Blood Pressure 116/75 138/82 138/82 O2 Sat by Pulse 99 100 100 Oximetry 01/21/17 16:40 Temperature Pulse Rate 90 Pulse Rate [ Anterior Bilateral Throughout] Respiratory Rate Respiratory Rate [Anterior Bilateral Throughout] Blood Pressure 126/81 O2 Sat by Pulse 100 Oximetry - Labs CBC & Chem 7: 01/20/17 17:55 01/20/17 17:22 Labs: Abnormal lab results 01/20/17 01/20/17 01/20/17 Range/Units 17:22 17:22 17:22 WBC (4.5-11.0) K/mm3 RDW (13.2-15.2) % [place] % (Auto) (0.0-7.3) % Lymph # (1.2-5.4) K/mm3 APTT 37.7 H (24.2-36.6) Sec. POC ABG pCO2 (35-45) POC ABG pO2 (80-105) Sodium 136 L (137-145) mmol/L Chloride 96.7 L (98-107) mmol/L Glucose 140 H (65-100) mg/dL POC Glucose (70-105) AST 48 H (5-40) units/L C-Reactive Protein (0.00-1.30) mg/dL Albumin 3.6 L (3.9-5) g/dL Urine WBC (Auto) (0.0-6.0) /HPF Salicylates < 0.3 L (2.8-20.0) mg/dL 01/20/17 01/20/17 01/20/17 Range/Units 17:22 17:55 17:55 WBC 4.1 L (4.5-11.0) K/mm3 RDW 15.6 H (13.2-15.2) % [place] % (Auto) 8.9 H (0.0-7.3) % Lymph # 0.8 L (1.2-5.4) K/mm3 APTT (24.2-36.6) Sec. POC ABG pCO2 (35-45) POC ABG pO2 (80-105) Sodium (137-145) mmol/L Chloride (98-107) mmol/L Glucose (65-100) mg/dL POC Glucose 152 H (70-105) AST (5-40) units/L C-Reactive Protein (0.00-1.30) mg/dL Albumin (3.9-5) g/dL Urine WBC (Auto) > 182.0 H (0.0-6.0) /HPF Salicylates (2.8-20.0) mg/dL 01/20/17 01/20/17 01/21/17 Range/Units 18:29 20:03 04:25 WBC (4.5-11.0) K/mm3 RDW (13.2-15.2) % [place] % (Auto) (0.0-7.3) % Lymph # (1.2-5.4) K/mm3 APTT (24.2-36.6) Sec. POC ABG pCO2 45.7 H 48.5 H 47.6 H (35-45) POC ABG pO2 69 L 64 L 451 H (80-105) Sodium (137-145) mmol/L Chloride (98-107) mmol/L Glucose (65-100) mg/dL POC Glucose (70-105) AST (5-40) units/L C-Reactive Protein (0.00-1.30) mg/dL Albumin (3.9-5) g/dL Urine WBC (Auto) (0.0-6.0) /HPF Salicylates (2.8-20.0) mg/dL 01/21/17 Range/Units 15:54 WBC (4.5-11.0) K/mm3 RDW (13.2-15.2) % [place] % (Auto) (0.0-7.3) % Lymph # (1.2-5.4) K/mm3 APTT (24.2-36.6) Sec. POC ABG pCO2 (35-45) POC ABG pO2 (80-105) Sodium (137-145) mmol/L Chloride (98-107) mmol/L Glucose (65-100) mg/dL POC Glucose (70-105) AST (5-40) units/L C-Reactive Protein 5.40 H (0.00-1.30) mg/dL Albumin (3.9-5) g/dL Urine WBC (Auto) (0.0-6.0) /HPF Salicylates (2.8-20.0) mg/dL
--- NOTE | 2017-01-21 17:05 | XRay Report ---
FINAL REPORT PROCEDURE: XR ABDOMEN 1V AP TECHNIQUE: Single-view HISTORY: OG tube placement COMPARISON: No prior studies are available for comparison. FINDINGS: Apparent OG tube curled in the left upper quadrant region of the fundus. Endotracheal tube appears to be in place 2. 3 centimeters from the bifurcation. Small bowel loops left upper quadrant in the 2 centimeter range. Moderate stool density. IMPRESSION: Oral nasal G-tube in place as above
--- NOTE | 2017-01-21 21:26 | Consultation ---
PULMONARY CRITICAL CARE CONSULTATION CONSULTING PHYSICIAN: Dr. Senior and Dr. Lopez. REASON FOR CONSULTATION: Acute hypoxemic respiratory failure, possible aspiration. CHIEF COMPLAINT AND HISTORY OF PRESENT ILLNESS: The patient is a 61-year-old female with past medical history significant for cerebrovascular accident in the past, brought in by emergency medical services after she choked. It is unclear if she came home or from a healthcare facility. They reported that she was not hypoglycemic in the field. She was obtunded, breathing sonorously when she came in to the ER, requiring bagged valve mask ventilation. She was intubated in the ER for airway protection, food debris was noted during the intubation procedure. She was admitted to the Intensive Care Unit where I stopped by to see her after discussion with the Emergency Room physician. When I stopped by to see her, she remained on some sedation, fentanyl drip was going, but she was responsive certainly, in fact a little agitated. Denied any uncontrolled pain at that time, she admitted to vomiting prior to this incident. I do not have any history of seizure disorder and she appears to deny. The above is as much of the history of presentation as I have except that she does admit to a 10+ packs year remote tobacco smoking history. PAST MEDICAL HISTORY: Hypertension, cerebrovascular accident as far as I can tell. PAST SURGICAL HISTORY: Unknown. MEDICATIONS: She was on at the time I stopped by to see were reviewed and the pertinent medications included a fentanyl drip at 2 mcg/kg per hour, heparin 5000 units subQ q. 8 hours, Levaquin 750 mg IV daily, propofol drip had been going earlier at about 30 mcg per kilogram per minute. ALLERGIES: PENICILLIN. Nature of this allergy is unknown. DIET: Thin-looking lady, denies acute weight loss or gain preceding few weeks to months. FAMILY AND SOCIAL HISTORY: Unclear if she lives in the community. She admits to a remote 10+ pack year tobacco smoking history. Alcohol, illicit drug use or abuse history is unknown. I should mention she had a positive drug screen at presentation for benzodiazepines, methadone and opiates. REVIEW OF SYSTEMS: Difficult to obtain secondary to the patient's medical and mental condition. A complete 13 review of system was attempted to be obtained. She did deny any chest pains or palpitations when I saw her. Since she has been here, no gross hematochezia or melena, no gross hematuria, no bloody ET tube secretions. No vomiting, no hematemesis. REVIEW OF SYSTEMS: Otherwise as in the body of the history above or unobtainable. PHYSICAL EXAMINATION: VITAL SIGNS: At presentation in the emergency room, she was afebrile, temperature 97.1 Fahrenheit, pulse 105, respiratory rate 20, blood pressure 122/92, oxygen sats are 100, inspired oxygen concentration was not recorded. T-max since she has been here is 100.2 degrees Fahrenheit. GENERAL: She is normocephalic, atraumatic. Has an endotracheal tube in her mouth, taped around 22 cm at the lips, intermittently coughing and in [id number] distress. HEENT: She is anicteric, no conjunctival erythema. No jugular venous distention, no thyromegaly. Oropharynx is moist. LYMPHATICS: She had grossly no palpable lymph nodes in the supraclavicular or submandibular lymph node chains. LUNGS: Auscultation of both lung hernandez, bibasilar predominant rales inspiratory, slightly prolonged expiratory phase. No wheezing. HEART: Heart sounds 1 and 2 are heard. They were regular in rate and rhythm at the time of my evaluation. No rubs, no murmurs. ABDOMEN: Soft, flat. Bowel sounds are positive, nontender. EXTREMITIES: Without overt digital clubbing, no cyanosis, no pedal edema. Dorsalis pedis pulses are palpable bilaterally. The skin is of normal turgor, no rash, no cellulitis. NEUROLOGIC: She moves all 4 extremities spontaneously. Pupils are equal, round, about 3 mm, reactive to light. Extraocular muscle movements appeared intact. She is sedated, unable to reevaluate her from a psychiatric standpoint. LABORATORY DATA: From my review are as follows: White cell count on admission 4100, hemoglobin 11.6, hematocrit 36.2, platelet count 179. INR 1.03. Arterial blood gas at presentation showed a pH of 7.37, pCO2 of 46, pO2 of 69 that was on 50% FiO2. This morning showed a pH of 7.42, pCO2 of 48, pO2 of 451 that was on 100% FiO2 on the mechanical ventilator assist control mode, I believe tidal volumes 500, PEEP of 5. Serum sodium was 136, potassium 4.1, chloride 97, bicarbonate 26, BUN 16, creatinine 0.8, glucose was 140. Lactic acid level was within normal limits. Cardiac enzymes within normal limits. Liver function tests essentially within normal limits. AST was up slightly at 48. Urinalysis showed large leukocyte esterase, greater than white cells per high power field. Urine drug screen, alcohol and aspirin levels within expected limits as well as Tylenol. Urine drug screen was positive for opiates, methadone, and benzodiazepines. Blood cultures no growth to date. Chest x-ray: ET tube is in good position, about 3-4 cm above the radha. A CT of her chest was also done. I have reviewed that and essentially showed some basilar atelectasis. No overt aspirated material that I could see, suggestion of COPD in the setting of motion artifact, so it little difficult to be sure about that. She had CT scans of the head and cervical spine. The CT of the head was within normal limits. No acute process. A CT of the cervical spine did not show any obvious fractures. ASSESSMENT AND PLAN: 1. Acute hypoxemic respiratory failure. 2. Possible aspiration pneumonitis. 3. History of a cerebrovascular accident. 4. History of hypertension. 5. Positive drug screen for opiates and benzodiazepines, unclear if these are prescribed medications or illicitly obtained. 6. Leukopenia. 6. Urinalysis suggested a urinary tract infection. PLAN: Continue full mechanical ventilatory support; however, we will begin weaning trials at this point. I will hold the propofol and reduce sedation as necessary. If she does tolerate the PSV trials, then we will consider extubation. However, she has been reportedly very agitated during the sedation held today. I will start her on some mild low dose Seroquel to see if you can aid weaning off the IV sedatives. Ventilator bundle will be addressed daily. Aspiration precautions will be maintained. She does have a suggestion of COPD on her imaging studies. I will schedule bronchodilators in the short time and we will go with short acting bronchodilators. We will continue empiric antibiotics for the possible aspiration pneumonia and possible COPD exacerbation. Tracheal aspirate will be ordered to be sent to the lab and followed. Anti-infectives will be deescalated based on results of clinical and microbiologic data. Blood pressure is holding at this point. She is appropriately on DVT prophylaxis. She will be placed on GI prophylaxis. Oxygen will be weaned to keep sats greater than or equal to 90%-94% and flu and pneumonia vaccination will be addressed per protocol. Thank you very much for the consult. We will follow along and make further recommendations as picture progresses/becomes clearer. She is critically ill on life-sustaining interventions including mechanical ventilatory support, at high risk for further deterioration including . At this point, I have spent about 40-45 minutes of critical care time without overlap excluding any procedural time that may be necessary. JOB# [id number] ALICIA/ALEJO
[2017-01-22] MEDS: DUONEB *Not for PRN Use IH SCH ×4 (01:40→20:02)
[2017-01-22] MEDS: fentaNYL DRIP Premix 2,000 MCG/100 ML BAG IV SCH (01:45)
[2017-01-22] MEDS: DIPRIVAN 10 MG/ML 1,000 MG/100 ML BOTTLE IV SCH (04:34)
[2017-01-22 04:50] LABS: Basophils % (Auto) 0.3 % (0.0-1.8); Eosinophils % (Auto) 1.4 % (0.0-4.3); Hematocrit 34.2 % (30.3-42.9); Mean Corpuscular HGB Conc 32 % (30-34); Mean Corpuscular Hemoglobin 28 pg (28-32); Mean Corpuscular Volume 88 fl (79-97); Platelet Count 157 K/mm3 (140-440); Red Blood Count 3.89 M/mm3 (3.65-5.03); Red Cell Distribution Width 15.1 % (13.2-15.2); White Blood Count 5.6 K/mm3 (4.5-11.0)
[2017-01-22 05:03] LABS: Alanine Aminotransferase 18 units/L (7-56); Albumin 2.9 g/dL (3.9-5); Albumin/Globulin Ratio 0.9 %; Alkaline Phosphatase 80 units/L (35-129); Anion Gap 16 mmol/L; BUN/Creatinine Ratio 20; Blood Urea Nitrogen 10 mg/dL (7-17); Calcium 8.8 mg/dL (8.4-10.2); Carbon Dioxide 24 mmol/L (22-30); Chloride 101.7 mmol/L (98-107); Glucose 90 mg/dL (65-100); Potassium 4.1 mmol/L (3.6-5.0); Sodium 138 mmol/L (137-145); Total Protein 6.2 g/dL (6.3-8.2)
[2017-01-22] MEDS: HEPARIN SUB-Q SCH ×3 (06:05→21:28)
[2017-01-22 09:27] LABS: ISTAT Base Excess 1; ISTAT HCO3 24.7; ISTAT PCO2 34.3 (35-45); ISTAT PH 7.467 (7.35-7.45); ISTAT PO2 117 (80-105); ISTAT SO2 99; ISTAT TCO2 26
--- NOTE | 2017-01-22 09:47 | XRay Report ---
AP CHEST: HISTORY: Followup respiratory failure The endotracheal tube and nasogastric tube remain in good position. Heart size and pulmonary vascularity are stable and within normal limits. Minor atelectatic changes are noted at the left lung base, otherwise the lungs are generally clear. The bony structures are grossly intact. IMPRESSION: No acute cardiopulmonary process. Minor atelectatic changes at the left lung base.
[2017-01-22] MEDS: LEVAQUIN 750MG/150ML 750 MG/150 ML BAG IV SCH (10:19)
--- NOTE | 2017-01-22 14:34 | Progress Note ---
Assessment and Plan Acute hypoxic respiratory failure Possible aspiration pneumonitis UTI- on abx, follow final cx result, Drug abuse - supplemental oxygen for O2 Sats <90% - continue bronchodilators and pulmonary hygeine - complete 5 days empiric AB's but can transition to p.o. for UTI and pneumonia - tobacco cessation counselled - continue GI & VTE prophylaxis - d/c planing shortly ...overall improved Subjective Date of service: 01/22/17 Principal diagnosis: Sepsis Syndrome; Acute COPD exacerbation Interval history: Patient is seen today for: Acute on Chronic Hypoxemic Hypercapnic Resp Failre; Sepsis Syndrome Seen and examined at bedside; 24hour events reviewed; nursing and respiratory care staff consulted; no adverse overnight events reported to me; passed SBT earlier and given a trial of extubation; denies acute chest pains or increased SOB; + cough no hemoptysis; No N/V/F/C Objective Vital Signs - 12hr 01/22/17 01/22/17 01/22/17 02:45 03:00 03:15 Temperature Pulse Rate 94 H 95 H 94 H Pulse Rate [ Anterior Bilateral Bases ] Respiratory 20 20 20 Rate Respiratory Rate [Anterior Bilateral Bases ] Blood Pressure 118/74 116/71 110/71 O2 Sat by Pulse 100 100 100 Oximetry 01/22/17 01/22/17 01/22/17 03:30 03:45 03:49 Temperature 98.0 F Pulse Rate 94 H 94 H Pulse Rate [ Anterior Bilateral Bases ] Respiratory 20 20 Rate Respiratory Rate [Anterior Bilateral Bases ] Blood Pressure 101/65 110/66 O2 Sat by Pulse 100 100 Oximetry 01/22/17 01/22/17 01/22/17 04:00 04:15 04:20 Temperature Pulse Rate 93 H 96 H 89 Pulse Rate [ Anterior Bilateral Bases ] Respiratory 20 20 Rate Respiratory Rate [Anterior Bilateral Bases ] Blood Pressure 110/66 117/73 117/73 O2 Sat by Pulse 100 100 100 Oximetry 01/22/17 01/22/17 01/22/17 04:30 04:45 05:00 Temperature Pulse Rate 88 85 88 Pulse Rate [ Anterior Bilateral Bases ] Respiratory 20 20 20 Rate Respiratory Rate [Anterior Bilateral Bases ] Blood Pressure 101/66 115/70 106/64 O2 Sat by Pulse 100 100 100 Oximetry 01/22/17 01/22/17 01/22/17 05:15 05:30 05:45 Temperature Pulse Rate 86 86 90 Pulse Rate [ Anterior Bilateral Bases ] Respiratory 19 20 20 Rate Respiratory Rate [Anterior Bilateral Bases ] Blood Pressure 111/67 105/72 124/76 O2 Sat by Pulse 99 100 100 Oximetry 01/22/17 01/22/17 01/22/17 06:00 06:09 06:15 Temperature Pulse Rate 98 H 95 H 96 H Pulse Rate [ Anterior Bilateral Bases ] Respiratory 21 18 Rate Respiratory Rate [Anterior Bilateral Bases ] Blood Pressure 122/77 122/77 122/67 O2 Sat by Pulse 100 100 99 Oximetry 01/22/17 01/22/17 01/22/17 06:30 06:45 07:00 Temperature Pulse Rate 103 H 109 H 93 H Pulse Rate [ Anterior Bilateral Bases ] Respiratory 17 20 20 Rate Respiratory Rate [Anterior Bilateral Bases ] Blood Pressure 125/80 122/67 126/74 O2 Sat by Pulse 100 100 100 Oximetry 01/22/17 01/22/17 01/22/17 07:15 07:30 07:45 Temperature Pulse Rate 104 H 107 H 126 H Pulse Rate [ Anterior Bilateral Bases ] Respiratory 21 21 22 Rate Respiratory Rate [Anterior Bilateral Bases ] Blood Pressure 135/83 130/76 130/76 O2 Sat by Pulse 100 98 100 Oximetry 01/22/17 01/22/17 01/22/17 07:50 08:00 08:15 Temperature 99.9 F H Pulse Rate 109 H 112 H Pulse Rate [ 108 H Anterior Bilateral Bases ] Respiratory 20 18 Rate Respiratory 20 Rate [Anterior Bilateral Bases ] Blood Pressure 126/73 121/67 O2 Sat by Pulse 98 95 Oximetry 01/22/17 01/22/17 01/22/17 08:21 08:30 08:45 Temperature Pulse Rate 118 H 114 H Pulse Rate [ 117 H Anterior Bilateral Bases ] Respiratory 25 H 19 Rate Respiratory 22 Rate [Anterior Bilateral Bases ] Blood Pressure 132/70 130/73 O2 Sat by Pulse 99 99 Oximetry 01/22/17 01/22/17 01/22/17 09:00 09:07 09:15 Temperature Pulse Rate 108 H 128 H 109 H Pulse Rate [ Anterior Bilateral Bases ] Respiratory 19 20 20 Rate Respiratory Rate [Anterior Bilateral Bases ] Blood Pressure 128/70 128/70 127/70 O2 Sat by Pulse 98 99 98 Oximetry 01/22/17 01/22/17 01/22/17 09:30 09:45 10:00 Temperature Pulse Rate 107 H 107 H 104 H Pulse Rate [ Anterior Bilateral Bases ] Respiratory 21 20 19 Rate Respiratory Rate [Anterior Bilateral Bases ] Blood Pressure 130/68 130/74 132/74 O2 Sat by Pulse 97 97 97 Oximetry 01/22/17 01/22/17 01/22/17 10:15 10:30 10:45 Temperature Pulse Rate 106 H 103 H 101 H Pulse Rate [ Anterior Bilateral Bases ] Respiratory 21 19 20 Rate Respiratory Rate [Anterior Bilateral Bases ] Blood Pressure 138/80 133/76 127/75 O2 Sat by Pulse 99 98 98 Oximetry 01/22/17 01/22/17 01/22/17 11:00 11:15 11:31 Temperature Pulse Rate 102 H 99 H 100 H Pulse Rate [ Anterior Bilateral Bases ] Respiratory 21 21 23 Rate Respiratory Rate [Anterior Bilateral Bases ] Blood Pressure 140/83 140/83 140/83 O2 Sat by Pulse 99 99 98 Oximetry 01/22/17 01/22/17 01/22/17 11:45 11:53 12:00 Temperature 99.6 F Pulse Rate 97 H 95 H Pulse Rate [ Anterior Bilateral Bases ] Respiratory 21 21 Rate Respiratory Rate [Anterior Bilateral Bases ] Blood Pressure 140/83 124/72 O2 Sat by Pulse 99 98 Oximetry 01/22/17 01/22/17 01/22/17 12:15 12:31 13:46 Temperature Pulse Rate 96 H 92 H Pulse Rate [ 85 Anterior Bilateral Bases ] Respiratory 24 23 Rate Respiratory 22 Rate [Anterior Bilateral Bases ] Blood Pressure 124/72 124/72 O2 Sat by Pulse 99 99 Oximetry 01/22/17 13:55 Temperature Pulse Rate Pulse Rate [ 90 Anterior Bilateral Bases ] Respiratory Rate Respiratory 20 Rate [Anterior Bilateral Bases ] Blood Pressure O2 Sat by Pulse Oximetry Constitutional: no acute distress, alert Eyes: non-icteric ENT: oropharynx moist Neck: supple, no lymphadenopathy, no JVD, other (No thyromegaly) Effort: mildly labored Ascultation: Bilateral: diminished breath sounds, rales (bases posteriorly) Percussion: Bilateral: not dull Cardiovascular: regular rate and rhythm, other (no rubs/murmurs) Gastrointestinal: normoactive bowel sounds, soft, non-tender, non-distended, other (No HSM) Integumentary: normal Extremities: no cyanosis, no edema, pulses normal, no ischemia or petechiae Neurologic: normal mental status, non-focal exam, pupils equal and round, motor strength normal and Psychiatric: mood appropriate, affect normal CBC and BMP: 01/22/17 04:19 01/22/17 04:19 ABG, PT/INR, D-dimer: ABG POC ABG pH 7.467 (7.35-7.45) H 01/22/17 09:22 POC ABG pCO2 34.3 (35-45) L 01/22/17 09:22 POC ABG pO2 117 (80-105) H 01/22/17 09:22 POC ABG HCO3 24.7 01/22/17 09:22 POC ABG Total CO2 26 01/22/17 09:22 POC ABG O2 Sat 99 01/22/17 09:22 PT/INR, D-dimer PT 14.0 Sec. (12.2-14.9) 01/20/17 17:22 INR 1.03 (0.87-1.13) 01/20/17 17:22 Abnormal lab findings: Abnormal Labs 01/20/17 01/20/17 01/20/17 17:22 17:22 17:22 WBC RDW [place] % (Auto) Lymph # Seg Neutrophils % APTT 37.7 H POC ABG pH POC ABG pCO2 POC ABG pO2 Sodium 136 L Chloride 96.7 L Creatinine Glucose 140 H POC Glucose AST 48 H C-Reactive Protein Total Protein Albumin 3.6 L Urine WBC (Auto) Salicylates < 0.3 L 01/20/17 01/20/17 01/20/17 17:22 17:55 17:55 WBC 4.1 L RDW 15.6 H [place] % (Auto) 8.9 H Lymph # 0.8 L Seg Neutrophils % APTT POC ABG pH POC ABG pCO2 POC ABG pO2 Sodium Chloride Creatinine Glucose POC Glucose 152 H AST C-Reactive Protein Total Protein Albumin Urine WBC (Auto) > 182.0 H Salicylates 01/20/17 01/20/17 01/21/17 18:29 20:03 04:25 WBC RDW [place] % (Auto) Lymph # Seg Neutrophils % APTT POC ABG pH POC ABG pCO2 45.7 H 48.5 H 47.6 H POC ABG pO2 69 L 64 L 451 H Sodium Chloride Creatinine Glucose POC Glucose AST C-Reactive Protein Total Protein Albumin Urine WBC (Auto) Salicylates 01/21/17 01/22/17 01/22/17 15:54 04:19 04:19 WBC RDW [place] % (Auto) 8.9 H Lymph # 1.0 L Seg Neutrophils % 70.8 H APTT POC ABG pH POC ABG pCO2 POC ABG pO2 Sodium Chloride Creatinine 0.5 L Glucose POC Glucose AST C-Reactive Protein 5.40 H Total Protein 6.2 L Albumin 2.9 L Urine WBC (Auto) Salicylates 01/22/17 09:22 WBC RDW [place] % (Auto) Lymph # Seg Neutrophils % APTT POC ABG pH 7.467 H POC ABG pCO2 34.3 L POC ABG pO2 117 H Sodium Chloride Creatinine Glucose POC Glucose AST C-Reactive Protein Total Protein Albumin Urine WBC (Auto) Salicylates Chest x-ray: image reviewed (much improved lung volumes; mild basilar platelike atelectasis)
--- NOTE | 2017-01-22 15:11 | Progress Note ---
Assessment and Plan Acute hypoxic respiratory failure -Patient was intubated and on mechanical ventilation since admission - parthley from aspiration -Motor Coach Supervisor was consulted, s/p extubated today -Patient started with IV fluids and IV Zosyn that can cover both the aspiration and UTI - Blood and urine culture obtained - urine cx growing Gm negative rods Possible aspiration pneumonitis - cont abx, sputum cx growing mixed jovanni UTI- on abx, follow final cx result, Drug abuse - will counselling psychologist when medically stable DVT prophylaxis - heparin Disposition: transfer to [facility] with panel monitor Subjective Date of service: 01/22/17 Interval history: Patient seen and examined. Medical records and medication list reviewed. No acute event overnight noted by the RN. Patient extubated today Objective - Exam Narrative Exam: The patient appeared well nourished and normally developed. No acute distress. Vital signs as documented. Head exam is unremarkable.No scleral icterus . Neck is without jugular venous distension, thyromegaly, or carotid bruits. Lungs are clear to auscultation. Cardiac exam reveals regular rate and Rhythm. First and second heart sounds normal. No murmurs, rubs or gallops. Abdominal exam reveals normal bowel sounds, no masses, no organomegaly and no aortic enlargement. Extremities are non edematous and both femoral and pedal pulses are normal. DRILL PRESS HAND: no focal deficit Psych: cooperative - Constitutional Vitals: Vital Signs - 12hr 01/22/17 01/22/17 01/22/17 03:15 03:30 03:45 Temperature Pulse Rate 94 H 94 H 94 H Pulse Rate [ Anterior Bilateral Bases ] Respiratory 20 20 20 Rate Respiratory Rate [Anterior Bilateral Bases ] Blood Pressure 110/71 101/65 110/66 O2 Sat by Pulse 100 100 100 Oximetry 01/22/17 01/22/17 01/22/17 03:49 04:00 04:15 Temperature 98.0 F Pulse Rate 93 H 96 H Pulse Rate [ Anterior Bilateral Bases ] Respiratory 20 20 Rate Respiratory Rate [Anterior Bilateral Bases ] Blood Pressure 110/66 117/73 O2 Sat by Pulse 100 100 Oximetry 01/22/17 01/22/17 01/22/17 04:20 04:30 04:45 Temperature Pulse Rate 89 88 85 Pulse Rate [ Anterior Bilateral Bases ] Respiratory 20 20 Rate Respiratory Rate [Anterior Bilateral Bases ] Blood Pressure 117/73 101/66 115/70 O2 Sat by Pulse 100 100 100 Oximetry 01/22/17 01/22/17 01/22/17 05:00 05:15 05:30 Temperature Pulse Rate 88 86 86 Pulse Rate [ Anterior Bilateral Bases ] Respiratory 20 19 20 Rate Respiratory Rate [Anterior Bilateral Bases ] Blood Pressure 106/64 111/67 105/72 O2 Sat by Pulse 100 99 100 Oximetry 01/22/17 01/22/17 01/22/17 05:45 06:00 06:09 Temperature Pulse Rate 90 98 H 95 H Pulse Rate [ Anterior Bilateral Bases ] Respiratory 20 21 Rate Respiratory Rate [Anterior Bilateral Bases ] Blood Pressure 124/76 122/77 122/77 O2 Sat by Pulse 100 100 100 Oximetry 01/22/17 01/22/17 01/22/17 06:15 06:30 06:45 Temperature Pulse Rate 96 H 103 H 109 H Pulse Rate [ Anterior Bilateral Bases ] Respiratory 18 17 20 Rate Respiratory Rate [Anterior Bilateral Bases ] Blood Pressure 122/67 125/80 122/67 O2 Sat by Pulse 99 100 100 Oximetry 01/22/17 01/22/17 01/22/17 07:00 07:15 07:30 Temperature Pulse Rate 93 H 104 H 107 H Pulse Rate [ Anterior Bilateral Bases ] Respiratory 20 21 21 Rate Respiratory Rate [Anterior Bilateral Bases ] Blood Pressure 126/74 135/83 130/76 O2 Sat by Pulse 100 100 98 Oximetry 01/22/17 01/22/17 01/22/17 07:45 07:50 08:00 Temperature 99.9 F H Pulse Rate 126 H 109 H Pulse Rate [ 108 H Anterior Bilateral Bases ] Respiratory 22 20 Rate Respiratory 20 Rate [Anterior Bilateral Bases ] Blood Pressure 130/76 126/73 O2 Sat by Pulse 100 98 Oximetry 01/22/17 01/22/17 01/22/17 08:15 08:21 08:30 Temperature Pulse Rate 112 H 118 H Pulse Rate [ 117 H Anterior Bilateral Bases ] Respiratory 18 25 H Rate Respiratory 22 Rate [Anterior Bilateral Bases ] Blood Pressure 121/67 132/70 O2 Sat by Pulse 95 99 Oximetry 01/22/17 01/22/17 01/22/17 08:45 09:00 09:07 Temperature Pulse Rate 114 H 108 H 128 H Pulse Rate [ Anterior Bilateral Bases ] Respiratory 19 19 20 Rate Respiratory Rate [Anterior Bilateral Bases ] Blood Pressure 130/73 128/70 128/70 O2 Sat by Pulse 99 98 99 Oximetry 01/22/17 01/22/17 01/22/17 09:15 09:30 09:45 Temperature Pulse Rate 109 H 107 H 107 H Pulse Rate [ Anterior Bilateral Bases ] Respiratory 20 21 20 Rate Respiratory Rate [Anterior Bilateral Bases ] Blood Pressure 127/70 130/68 130/74 O2 Sat by Pulse 98 97 97 Oximetry 01/22/17 01/22/17 01/22/17 10:00 10:15 10:30 Temperature Pulse Rate 104 H 106 H 103 H Pulse Rate [ Anterior Bilateral Bases ] Respiratory 19 21 19 Rate Respiratory Rate [Anterior Bilateral Bases ] Blood Pressure 132/74 138/80 133/76 O2 Sat by Pulse 97 99 98 Oximetry 01/22/17 01/22/17 01/22/17 10:45 11:00 11:15 Temperature Pulse Rate 101 H 102 H 99 H Pulse Rate [ Anterior Bilateral Bases ] Respiratory 20 21 21 Rate Respiratory Rate [Anterior Bilateral Bases ] Blood Pressure 127/75 140/83 140/83 O2 Sat by Pulse 98 99 99 Oximetry 01/22/17 01/22/17 01/22/17 11:31 11:45 11:53 Temperature 99.6 F Pulse Rate 100 H 97 H Pulse Rate [ Anterior Bilateral Bases ] Respiratory 23 21 Rate Respiratory Rate [Anterior Bilateral Bases ] Blood Pressure 140/83 140/83 O2 Sat by Pulse 98 99 Oximetry 01/22/17 01/22/17 01/22/17 12:00 12:15 12:31 Temperature Pulse Rate 95 H 96 H 92 H Pulse Rate [ Anterior Bilateral Bases ] Respiratory 21 24 23 Rate Respiratory Rate [Anterior Bilateral Bases ] Blood Pressure 124/72 124/72 124/72 O2 Sat by Pulse 98 99 99 Oximetry 01/22/17 01/22/17 13:46 13:55 Temperature Pulse Rate Pulse Rate [ 85 90 Anterior Bilateral Bases ] Respiratory Rate Respiratory 22 20 Rate [Anterior Bilateral Bases ] Blood Pressure O2 Sat by Pulse Oximetry - Labs CBC & Chem 7: 01/22/17 04:19 01/22/17 04:19 Labs: Abnormal lab results 01/21/17 01/22/17 01/22/17 Range/Units 15:54 04:19 04:19 [place] % (Auto) 8.9 H (0.0-7.3) % Lymph # 1.0 L (1.2-5.4) K/mm3 Seg Neutrophils % 70.8 H (40.0-70.0) % POC ABG pH (7.35-7.45) POC ABG pCO2 (35-45) POC ABG pO2 (80-105) Creatinine 0.5 L (0.7-1.2) mg/dL C-Reactive Protein 5.40 H (0.00-1.30) mg/dL Total Protein 6.2 L (6.3-8.2) g/dL Albumin 2.9 L (3.9-5) g/dL 01/22/17 Range/Units 09:22 [place] % (Auto) (0.0-7.3) % Lymph # (1.2-5.4) K/mm3 Seg Neutrophils % (40.0-70.0) % POC ABG pH 7.467 H (7.35-7.45) POC ABG pCO2 34.3 L (35-45) POC ABG pO2 117 H (80-105) Creatinine (0.7-1.2) mg/dL C-Reactive Protein (0.00-1.30) mg/dL Total Protein (6.3-8.2) g/dL Albumin (3.9-5) g/dL
[2017-01-23] MEDS ORDERED: HALDOL IM PRN (02:00)
[2017-01-23] MEDS: DUONEB *Not for PRN Use IH SCH ×3 (03:09→13:26)
[2017-01-23] MEDS: HEPARIN SUB-Q SCH ×2 (05:57→13:53)
--- NOTE | 2017-01-23 11:40 | Discharge Summary ---
Providers - Providers Date of Admission: 01/20/17 22:52 Date of discharge: 01/23/17 Attending physician: ALTAGRACIA CALZADA 01/20/17 17:31 Consult to Physician [CONS] Urgent Consulting Provider: MARIBELL MONTES Reason For Exam: resp failuire Place consult to:: Dr. Montes Notified:: Answering Service Phone number called:: [phone] Was contact made?: Yes If yes, spoke with:: Dr. Montes Time called:: 19:26 Comment:: Dr. Senior (er dr) spoke with Dr. Montes 01/20/17 22:53 Consult to Dietitian/Nutrition [CONS] Routine Physician Instructions: Reason For Exam: Reason for Consult: Malnutrition 01/20/17 22:54 Consult to Physician [CONS] Routine Consulting Provider: MARIBELL MONTES Reason For Exam: respiratory arrest Place consult to:: Reel Tender Notified:: Answering Service Phone number called:: see above with Dr. Senior 01/23/17 09:05 Physical Therapy Evaluation and Treat [CONS] Routine Comment: Reason For Exam: d/c clearance Primary care physician: BAGEL MAKER Hospitalization Condition: Critical Hospital course: Discharge diagnosis and management: Acute hypoxic respiratory failure -Patient was intubated and on mechanical ventilation since admission - hari from aspiration -Reel Tender was consulted, s/p extubated today -Patient started with IV fluids and IV Zosyn that can cover both the aspiration and UTI - Blood and urine culture obtained - urine cx growing Gm negative rods Possible aspiration pneumonitis - cont abx, sputum cx growing mixed jovanni UTI- on abx, follow final cx result, Drug abuse - will crisis counselor when medically stable DVT prophylaxis - heparin Disposition: DC-01 TO HOME OR SELFCARE Time spent for discharge: 32 minutes Core Measure Documentation - Palliative Care Palliative Care/ Comfort Measures: Not Applicable - Core Measures Any of the following diagnoses?: none Exam - Physical Exam Narrative exam: The patient appeared well nourished and normally developed. No acute distress. Vital signs as documented. Head exam is unremarkable.No scleral icterus . Neck is without jugular venous distension, thyromegaly, or carotid bruits. Lungs are clear to auscultation. Cardiac exam reveals regular rate and Rhythm. First and second heart sounds normal. No murmurs, rubs or gallops. Abdominal exam reveals normal bowel sounds, no masses, no organomegaly and no aortic enlargement. Extremities are non edematous and both femoral and pedal pulses are normal. HAMPER MAKER: no focal deficit Psych: cooperative - Constitutional Vitals: Temp Pulse Resp BP Pulse Ox 98.0 F 93 H 20 142/94 94 01/23/17 07:52 01/23/17 08:14 01/23/17 08:42 01/23/17 07:52 01/23/17 08:14 Plan Activity: advance as tolerated Weight Bearing Status: Weight Bear as Tolerated Diet: low fat, low salt Additional Instructions: Resume home meds Follow up with: PRIMARY CARE, [Primary Care Provider] - 7 Days Prescriptions: Levofloxacin [Levaquin] 750 mg PO QDAY #5 tablet
[2017-01-23] MEDS: LEVAQUIN 750MG/150ML 750 MG/150 ML BAG IV SCH (11:42)
--- NOTE | 2017-01-23 11:58 | Progress Note ---
Assessment and Plan Acute hypoxic respiratory failure Possible aspiration pneumonitis UTI- on abx, follow final cx result, Drug abuse - supplemental oxygen for O2 Sats <90% - continue bronchodilators and pulmonary hygeine - complete 5 days empiric AB's but can transition to p.o. for UTI and pneumonia - tobacco cessation counselled - continue GI & VTE prophylaxis - d/c planing shortly ...overall improved Subjective Date of service: 01/23/17 Principal diagnosis: Sepsis Syndrome; Acute COPD exacerbation Interval history: Patient is seen today for: Acute on Chronic Hypoxemic Hypercapnic Resp Failre; Sepsis Syndrome Seen and examined at bedside; 24hour events reviewed; nursing and respiratory care staff consulted; no adverse overnight events reported to me; Objective Vital Signs - 12hr 01/23/17 01/23/17 01/23/17 00:00 00:15 00:31 Temperature Pulse Rate 91 H 88 85 Pulse Rate [ Anterior Bilateral Bases ] Respiratory 20 19 20 Rate Respiratory Rate [Anterior Bilateral Bases ] Respiratory Rate [Bilateral ] Blood Pressure 119/72 119/72 119/72 O2 Sat by Pulse 95 97 98 Oximetry 01/23/17 01/23/17 01/23/17 00:45 01:00 02:30 Temperature 98.6 F Pulse Rate 92 H 82 88 Pulse Rate [ Anterior Bilateral Bases ] Respiratory 16 20 18 Rate Respiratory Rate [Anterior Bilateral Bases ] Respiratory Rate [Bilateral ] Blood Pressure 119/72 121/73 130/79 O2 Sat by Pulse 99 99 96 Oximetry 01/23/17 01/23/17 01/23/17 07:52 08:00 08:14 Temperature 98.0 F Pulse Rate 82 Pulse Rate [ 91 H 93 H Anterior Bilateral Bases ] Respiratory 19 Rate Respiratory 18 18 Rate [Anterior Bilateral Bases ] Respiratory Rate [Bilateral ] Blood Pressure 142/94 O2 Sat by Pulse 95 94 Oximetry 01/23/17 08:42 Temperature Pulse Rate Pulse Rate [ Anterior Bilateral Bases ] Respiratory Rate Respiratory Rate [Anterior Bilateral Bases ] Respiratory 20 Rate [Bilateral ] Blood Pressure O2 Sat by Pulse Oximetry Constitutional: no acute distress, alert Eyes: non-icteric ENT: oropharynx moist Neck: supple, no lymphadenopathy, no JVD, other (No thyromegaly) Effort: mildly labored Ascultation: Bilateral: diminished breath sounds, rales (bases posteriorly) Percussion: Bilateral: not dull Cardiovascular: regular rate and rhythm, other (no rubs/murmurs) Gastrointestinal: normoactive bowel sounds, soft, non-tender, non-distended, other (No HSM) Integumentary: normal Extremities: no cyanosis, no edema, pulses normal, no ischemia or petechiae Neurologic: normal mental status, non-focal exam, pupils equal and round, motor strength normal and Psychiatric: mood appropriate, affect normal CBC and BMP: 01/22/17 04:19 01/22/17 04:19 ABG, PT/INR, D-dimer: ABG POC ABG pH 7.467 (7.35-7.45) H 01/22/17 09:22 POC ABG pCO2 34.3 (35-45) L 01/22/17 09:22 POC ABG pO2 117 (80-105) H 01/22/17 09:22 POC ABG HCO3 24.7 01/22/17 09:22 POC ABG Total CO2 26 01/22/17 09:22 POC ABG O2 Sat 99 01/22/17 09:22 PT/INR, D-dimer PT 14.0 Sec. (12.2-14.9) 01/20/17 17:22 INR 1.03 (0.87-1.13) 01/20/17 17:22 Abnormal lab findings: Abnormal Labs 01/20/17 01/20/17 01/20/17 17:22 17:22 17:22 WBC RDW [place] % (Auto) Lymph # Seg Neutrophils % APTT 37.7 H POC ABG pH POC ABG pCO2 POC ABG pO2 Sodium 136 L Chloride 96.7 L Creatinine Glucose 140 H POC Glucose AST 48 H C-Reactive Protein Total Protein Albumin 3.6 L Urine WBC (Auto) Salicylates < 0.3 L 01/20/17 01/20/17 01/20/17 17:22 17:55 17:55 WBC 4.1 L RDW 15.6 H [place] % (Auto) 8.9 H Lymph # 0.8 L Seg Neutrophils % APTT POC ABG pH POC ABG pCO2 POC ABG pO2 Sodium Chloride Creatinine Glucose POC Glucose 152 H AST C-Reactive Protein Total Protein Albumin Urine WBC (Auto) > 182.0 H Salicylates 01/20/17 01/20/17 01/21/17 18:29 20:03 04:25 WBC RDW [place] % (Auto) Lymph # Seg Neutrophils % APTT POC ABG pH POC ABG pCO2 45.7 H 48.5 H 47.6 H POC ABG pO2 69 L 64 L 451 H Sodium Chloride Creatinine Glucose POC Glucose AST C-Reactive Protein Total Protein Albumin Urine WBC (Auto) Salicylates 01/21/17 01/22/17 01/22/17 15:54 04:19 04:19 WBC RDW [place] % (Auto) 8.9 H Lymph # 1.0 L Seg Neutrophils % 70.8 H APTT POC ABG pH POC ABG pCO2 POC ABG pO2 Sodium Chloride Creatinine 0.5 L Glucose POC Glucose AST C-Reactive Protein 5.40 H Total Protein 6.2 L Albumin 2.9 L Urine WBC (Auto) Salicylates 01/22/17 09:22 WBC RDW [place] % (Auto) Lymph # Seg Neutrophils % APTT POC ABG pH 7.467 H POC ABG pCO2 34.3 L POC ABG pO2 117 H Sodium Chloride Creatinine Glucose POC Glucose AST C-Reactive Protein Total Protein Albumin Urine WBC (Auto) Salicylates
[2017-01-23 17:35] VITALS: BP 150/102
[2017-01-24] MEDS ORDERED: LEVAQUIN PO SCH (10:00)
== END 2017-01-23 18:15 | disposition home health service (06) | DRG 208 ==
LOC: ED 17:14 → EDBD 22:52 → CC1 22:52 → 3A 01-23 01:46
PROVIDERS: ADMIT Internal Medicine; ATTEND Internal Medicine
PROC: 5A1945Z Respiratory Ventilation, 24-96 Consecutive Hours (ICD-10-PCS; principal; 2017-01-20)
PROC: 0BH17EZ Insertion of Endotracheal Airway into Trachea, Via Natural or Artificial Opening (ICD-10-PCS; 2017-01-20)
PROC: 4A033R1 Measurement of Arterial Saturation, Peripheral, Percutaneous Approach (ICD-10-PCS; 2017-01-20)
PROC: 05HQ33Z Insertion of Infusion Device into Left External Jugular Vein, Percutaneous Approach (ICD-10-PCS; 2017-01-20)
DX: J96.01 Acute respiratory failure with hypoxia (principal); J69.0 Pneumonitis due to inhalation of food and vomit; N39.0 Urinary tract infection, site not specified; F19.10 Other psychoactive substance abuse, uncomplicated; D72.819 Decreased white blood cell count, unspecified; I10 Essential (primary) hypertension; Z86.73 Personal history of transient ischemic attack (TIA), and cerebral infarction without residual deficits; Z88.0 Allergy status to penicillin
CPT/HCPCS: 36415; 36600; 70450; 71010; 71250; 72125; 74000; 80053; 80307; 80320; 81001; 82140; 82550; 82803; 82962; 84443; 84484; 85025; 85610; 85730; 86140; 86850; 86900; 86901; 87040; 87070; 87076; 87086; 87186; 87205; 93005; 93010; 94002; 94003; 94640; 94760; 96365; G0480; J0696; J1630; J1644; J1956; J2543; J2704; J3010; J7030

== ENCOUNTER 2017-02-14 21:07 | Inpatient (IN) | payer MEDICAID ==
[2017-02-14] MEDS ORDERED: DUONEB *Not for PRN Use IH ONE ×2 (21:19→21:21)
[2017-02-14] MEDS ORDERED: LASIX IV ONE (21:21)
[2017-02-14] MEDS ORDERED: TORADOL IV ONE (21:22)
--- NOTE | 2017-02-14 21:33 | Emergency Department Report ---
ED Shortness of Breath HPI - General Stated Complaint: DIFFICULTY IN BREATHING Time Seen by Provider: 02/14/17 21:20 Source: patient, RN/MD Mode of arrival: Stretcher (ems) Limitations: Other (not able to speak in full sentences ) - History of Present Illness Initial Comments: 61 yo female who comes in via ems due to shortness of breath. She states that the shortness of breath started 10 days ago when she was discharged home from the hospital. Admits to a prolonged history of tobacco abuse. Temperature check in the room 101.1. History not fully gotten due to extreme shortness of breath in the patient. MD Complaint: shortness of breath -: days(s) (10) Severity: severe Consistency: constant Improves With: oxygen, bronchodilators, upright position, medication Worsens With: lying flat, exertion, coughing Known History Of: COPD Context: other (cough, shortness of breath for ten days) Associated Symptoms: fever, cough Treatments Prior to Arrival: none - Related Data Home Oxygen Therapy: No Previous Rx's Medication Instructions Recorded Last Taken Type Levofloxacin [Levaquin] 750 mg PO QDAY #5 tablet 01/23/17 Unknown Rx Allergies Allergy/AdvReac Type Severity Reaction Status Date / Time Penicillins Allergy Unknown Verified 01/21/17 00:42 codeine AdvReac Hives Verified 02/14/17 21:35 sulfur dioxide AdvReac Hives Verified 02/14/17 21:34 ED Review of Systems ROS: Stated complaint: DIFFICULTY IN BREATHING Other details as noted in HPI Constitutional: fever Eyes: denies: eye pain, eye discharge, vision change ENT: denies: ear pain, throat pain Respiratory: see HPI, cough, SOB with exertion, SOB at rest Cardiovascular: denies: chest pain, palpitations Endocrine: no symptoms reported Gastrointestinal: denies: abdominal pain, nausea, diarrhea Genitourinary: denies: urgency, dysuria, discharge Musculoskeletal: denies: back pain, joint swelling, arthralgia Skin: denies: rash, lesions Neurological: denies: headache, weakness, paresthesias Psychiatric: anxiety Hematological/Lymphatic: denies: easy bleeding, easy bruising ED Past Medical Hx - Past Medical History Previous Medical History?: Yes Hx Hypertension: Yes Hx CVA: Yes Hx COPD: Yes - Social History Smoking Status: Unknown if ever smoked - Medications Home Medications: Home Medications Medication Instructions Recorded Confirmed Last Taken Type Levofloxacin [Levaquin] 750 mg PO QDAY #5 tablet 01/23/17 Unknown Rx ED Physical Exam - General General appearance: anxious - Head Head exam: Present: atraumatic, normocephalic - Eye Eye exam: Present: normal appearance - ENT ENT exam: Present: mucous membranes moist - Neck Neck exam: Present: normal inspection - Respiratory Respiratory exam: Present: respiratory distress, wheezes - Cardiovascular Cardiovascular Exam: Present: tachycardia - GI/Abdominal GI/Abdominal exam: Present: soft, normal bowel sounds - Extremities Exam Extremities exam: Present: normal inspection - Back Exam Back exam: Present: normal inspection - Neurological Exam Neurological exam: Present: alert, oriented X3 - Psychiatric Psychiatric exam: Present: anxious - Skin Skin exam: Present: pallor ED Course Vital Signs 02/14/17 02/14/17 02/14/17 21:13 21:18 21:19 Temperature Pulse Rate 115 H Pulse Rate [ 114 H Anterior Bilateral Throughout] Respiratory 21 Rate Respiratory 22 Rate [Anterior Bilateral Throughout] Blood Pressure Blood Pressure [Right] O2 Sat by Pulse 92 Oximetry 02/14/17 02/14/17 02/14/17 21:30 21:31 21:35 Temperature 101.1 F H Pulse Rate 114 H 113 H Pulse Rate [ 104 H Anterior Bilateral Throughout] Respiratory 17 23 Rate Respiratory 22 Rate [Anterior Bilateral Throughout] Blood Pressure 151/94 151/94 Blood Pressure 126/86 [Right] O2 Sat by Pulse 99 100 Oximetry 02/14/17 02/14/17 02/14/17 22:00 22:02 22:30 Temperature Pulse Rate 114 H 106 H Pulse Rate [ Anterior Bilateral Throughout] Respiratory 20 24 19 Rate Respiratory Rate [Anterior Bilateral Throughout] Blood Pressure 151/94 151/94 Blood Pressure [Right] O2 Sat by Pulse 100 96 Oximetry 02/14/17 02/14/17 02/14/17 23:00 23:09 23:30 Temperature Pulse Rate 108 H Pulse Rate [ Anterior Bilateral Throughout] Respiratory 21 18 Rate Respiratory Rate [Anterior Bilateral Throughout] Blood Pressure 151/94 149/85 Blood Pressure [Right] O2 Sat by Pulse 97 100 Oximetry 02/14/17 02/15/17 23:57 00:00 Temperature Pulse Rate 94 H Pulse Rate [ Anterior Bilateral Throughout] Respiratory 22 Rate Respiratory Rate [Anterior Bilateral Throughout] Blood Pressure 194/85 149/85 Blood Pressure [Right] O2 Sat by Pulse 99 99 Oximetry - Reevaluation(s) Reevaluation #1: 02/15/17 01:12 Patient admits to feeling much better. Plan to admit to the hospitalist service. - Central Line Placement Right SC Consent Obtained: written consent Time Out Performed: Yes Patient Placed on Monitor/Pulse Ox: Yes Prep: mask, gown, gloves Central Line Prep: Chlorhexidine scrub Local Anesthesia Used: Lidocaine 1% Amount of Anesthesia Used (mls): 10 Ultrasound Used for Placement: No Central Line Lumen Inserted: triple Bloods Obtained for Lab: Yes Central Line Position: good blood return, all ports aspirated, flus, sutured in place with 2-0 Dressing Applied: Tegaderm, sterile gauze/tape Post Procedure X-Ray: tip of catheter in good p Patient Tolerated Procedure: well Complications: none ED Medical Decision Making - Lab Data Result diagrams: 02/14/17 21:50 02/14/17 21:50 - EKG Data EKG shows normal: sinus rhythm Rate: normal - EKG Data When compared to previous EKG there are: previous EKG unavailable Interpretation: other (large amount of movement on the ekg ) - Radiology Data Radiology results: report reviewed Right subclavian catheter in place. No acute process. - Medical Decision Making Respiratory distress COPD Congestive heart failure Hypokalemia - Differential Diagnosis respiratory distress, copd, congestive heart failure, hypokalemia Critical care attestation.: If time is entered above; I have spent that time in minutes in the direct care of this critically ill patient, excluding procedure time. ED Disposition Clinical Impression: COPD (chronic obstructive pulmonary disease), Congestive heart failure, Hypokalemia Disposition: OP ADMIT IP TO THIS HOSP Is pt being admited?: Yes Does the pt Need Aspirin: No Condition: Stable Instructions: Chronic Obstructive Pulmonary Disease (ED) Referrals: MAURICE MCCLURE MD [Primary Care Provider] - 3-5 Days Time of Disposition: 01:15
--- NOTE | 2017-02-14 21:57 | XRay Report ---
FINAL REPORT EXAM: XR CHEST 1V AP HISTORY: shortness of breath TECHNIQUE: upright single view chest PRIORS: None. FINDINGS: Cardiac and mediastinal contours are unremarkable. No focal pulmonary infiltrate is identified. No pleural fluid collection seen. Pulmonary vasculature is unremarkable. IMPRESSION: Negative single-view chest
[2017-02-14 22:02] LABS: Basophils % (Auto) 0.4 % (0.0-1.8); Eosinophils % (Auto) 0.5 % (0.0-4.3); Hematocrit 36.3 % (30.3-42.9); Hemoglobin 12.3 gm/dl (10.1-14.3); Mean Corpuscular HGB Conc 34 % (30-34); Mean Corpuscular Hemoglobin 29 pg (28-32); Mean Corpuscular Volume 86 fl (79-97); Platelet Count 161 K/mm3 (140-440); Red Blood Count 4.24 M/mm3 (3.65-5.03); Red Cell Distribution Width 14.6 % (13.2-15.2); White Blood Count 7.1 K/mm3 (4.5-11.0)
[2017-02-14 22:13] LABS: INR 1.07 (0.87-1.13)
[2017-02-14 22:14] LABS: Partial Thromboplastin Time 37.7 Sec. (24.2-36.6)
[2017-02-14 22:29] LABS: Creatine Kinase MB 3.6 ng/mL (0.0-4.0)
[2017-02-14 22:32] LABS: Alanine Aminotransferase 15 units/L (7-56); Albumin 3.6 g/dL (3.9-5); Albumin/Globulin Ratio 1.1 %; Alkaline Phosphatase 104 units/L (35-129); Anion Gap 18 mmol/L; BUN/Creatinine Ratio 18; Blood Urea Nitrogen 7 mg/dL (7-17); Calcium 8.4 mg/dL (8.4-10.2); Carbon Dioxide 27 mmol/L (22-30); Chloride 97.8 mmol/L (98-107); Creatine Kinase 68 units/L (30-135); Glucose 120 mg/dL (65-100); Potassium 3.5 mmol/L (3.6-5.0); Sodium 139 mmol/L (137-145); Total Protein 6.9 g/dL (6.3-8.2)
[2017-02-14 23:41] LABS: ISTAT Base Excess 5; ISTAT HCO3 29.7; ISTAT PCO2 47.8 (35-45); ISTAT PH 7.401 (7.35-7.45); ISTAT PO2 132 (80-105); ISTAT SO2 99; ISTAT TCO2 31
--- NOTE | 2017-02-14 23:48 | XRay Report ---
FINAL REPORT EXAM: XR CHEST 1V AP HISTORY: central line placement TECHNIQUE: upright single view chest PRIORS: None. FINDINGS: Cardiac and mediastinal contours are unremarkable. No focal pulmonary infiltrate is identified. No pleural fluid collection seen. Pulmonary vasculature is unremarkable. There is a right subclavian central venous catheter catheter tip at the SVC. There is no evidence for pneumothorax post catheter placement IMPRESSION: Right subclavian catheter in satisfactory position. No evidence for pneumothorax post catheter placement No acute findings in the chest
[2017-02-15] MEDS ORDERED: K-DUR PO ONE (00:46)
[2017-02-15] MEDS ORDERED: LEVAQUIN 500MG/100ML 500 MG/100 ML BAG IV ONE (00:46)
[2017-02-15 02:05] LABS: Bacteria,Urine 1+ /HPF (Negative); Bilirubin,Urine NEG (Negative); Blood,Urine NEG (Negative); Ketones,Urine NEG (Negative); Leukocyte Esterase,Urine NEG (Negative); Mucus,Urine FEW /HPF; Nitrite,Urine NEG (Negative); Protein,Urine <15 mg/dL mg/dL (Negative); Urobilinogen,Urine < 2.0 mg/dL (<2.0)
[2017-02-15] MEDS ORDERED: TYLENOL PO PRN (02:10)
[2017-02-15] MEDS ORDERED: ZOFRAN IV PRN (02:10)
[2017-02-15] MEDS ORDERED: MILK OF MAGNESIA PO PRN (02:10)
[2017-02-15] MEDS ORDERED: DULCOLAX PR PRN (02:10)
--- NOTE | 2017-02-15 02:50 | History and Physical Report ---
History of Present Illness Date of examination: 02/15/17 Date of admission: 02/15/17 02:10 History of present illness: 61 year old woman with history of COPD who quit smoking 2 weeks ago comes to the emergency room with complaints of shortness of breath. She has been using nebulizer treatments without any improvement. She was recently discharged from the hospital for shortness of breath Review Of Systems: Constitutional: no weight loss Ears, eyes, nose, mouth and throat: no nasal congestion, no nasal discharge, no sinus pressure, blurry vision, diplopia Neck: No neck pain or rigidity. Cardiovascular: No chest pain, palpitations Respiratory: No cough Gastrointestinal: No abdominal pain, hematochezia Genitourinary : no dysuria, frequency , hematuria Musculoskeletal: no muscle ache Integumentary: no rash, no pruritis Neurological: no parathesias, focal weakness Endocrine: no cold or heat intolerance, no polyuria or polydipsia Hematologic/Lymphatic: no easy bruising, no easy bleeding, no gland swelling Allergic/Immunologic: no urticaria, no angioedema. PAST MEDICAL HISTORY:COPD PAST SURGICAL HISTORY: Tubal ligation, knee and arm surgery FAMILY HISTORY:hypertension SOCIAL HISTORY:quit smoking 2 weeks ago, social clcohol, no drugs Medications and Allergies Allergies Allergy/AdvReac Type Severity Reaction Status Date / Time Penicillins Allergy Unknown Verified 01/21/17 00:42 codeine AdvReac Hives Verified 02/14/17 21:35 sulfur dioxide AdvReac Hives Verified 02/14/17 21:34 Home Medications Medication Instructions Recorded Confirmed Last Taken Type Levofloxacin [Levaquin] 750 mg PO QDAY #5 tablet 01/23/17 Unknown Rx Active Meds: Active Medications Acetaminophen (Tylenol) 650 mg PO Q4H PRN PRN Reason: Pain MILD(1-3)/Fever >100.5/SIBLEY Albuterol/Ipratropium (Duoneb *Not For Prn Use*) 1 ampul IH Q6HRT [facility] Bisacodyl (Dulcolax) 10 mg [place] QDAY PRN PRN Reason: Constipation unrelieved by MOM Enoxaparin Sodium (Lovenox) 30 mg SUB-Q QDAY CYNTHIA Levofloxacin/Dextrose (Levaquin 500mg/100ml) 500 mg in 100 mls @ 100 mls/hr IV Q24H CYNTHIA PRN Reason: Protocol Magnesium Hydroxide (Milk Of Magnesia) 30 ml PO Q4H PRN PRN Reason: Constipation Methylprednisolone Sodium Succinate (Solu-Medrol) 125 mg IV Q6HR CYNTHIA Ondansetron HCl (Zofran) 4 mg IV Q8H PRN PRN Reason: N/V unrelieved by Reglan Exam - Physical Exam Narrative exam: Gen. appearance: Patient lying in bed in no acute distress HEENT: Normocephalic/atraumatic, pupils equal round reactive to light, extra occular movement intact, no scleral icterus, no JVD or thyromegaly or nodule, neck is supple, mucous membrane moist, no erythema or exudate Heart: S1-S2, regular rate and rhythm Lungs: wheezing bilateral breathing comfortable Abdomen: Positive bowel sounds, nontender, nondistended, no organomegaly Extremities: No edema, cyanosis, clubbing Neuro:: Oriented 3 , cranial nerves II-12 intact, speech, motor intact Skin: No rash, nodules, warm dry - Constitutional Vitals: Temp Pulse Resp BP Pulse Ox 99.0 F 78 18 143/87 99 02/15/17 01:35 02/15/17 02:30 02/15/17 02:30 02/15/17 02:30 02/15/17 02:00 Results - Labs CBC & Chem 7: 02/14/17 21:50 02/14/17 21:50 Labs: Abnormal lab results 02/14/17 02/14/17 02/14/17 Range/Units 21:50 21:50 21:50 [place] % (Auto) 7.9 H (0.0-7.3) % Lymph # 1.1 L (1.2-5.4) K/mm3 Seg Neutrophils % 75.7 H (40.0-70.0) % APTT 37.7 H (24.2-36.6) Sec. POC ABG pCO2 (35-45) POC ABG pO2 (80-105) Potassium 3.5 L (3.6-5.0) mmol/L Chloride 97.8 L (98-107) mmol/L Creatinine 0.4 L (0.7-1.2) mg/dL Glucose 120 H (65-100) mg/dL CK-MB (CK-2) Rel Index 5.2 H (0-4) NT-Pro-B Natriuret Pep 1477 H (0-900) pg/mL Albumin 3.6 L (3.9-5) g/dL 02/14/17 Range/Units 23:39 [place] % (Auto) (0.0-7.3) % Lymph # (1.2-5.4) K/mm3 Seg Neutrophils % (40.0-70.0) % APTT (24.2-36.6) Sec. POC ABG pCO2 47.8 H (35-45) POC ABG pO2 132 H (80-105) Potassium (3.6-5.0) mmol/L Chloride (98-107) mmol/L Creatinine (0.7-1.2) mg/dL Glucose (65-100) mg/dL CK-MB (CK-2) Rel Index (0-4) NT-Pro-B Natriuret Pep (0-900) pg/mL Albumin (3.9-5) g/dL - Imaging and Cardiology EKG: image reviewed Chest x-ray: image reviewed Assessment and Plan Assessment Acute respiratory failure COPD exacerbation Plan Continue BiPAP Start high-dose steroids, nebulizer treatments, DVT prophylaxis
[2017-02-15 06:42] LABS: Creatine Kinase MB 3.2 ng/mL (0.0-4.0)
[2017-02-15 09:04] LABS: Creatine Kinase MB 3.1 ng/mL (0.0-4.0)
[2017-02-15] MEDS: LOVENOX SUB-Q SCH (10:00)
[2017-02-15] MEDS ORDERED: LOVENOX SUB-Q SCH (10:00)
[2017-02-15] MEDS: DUONEB *Not for PRN Use IH SCH ×3 (10:11→21:29)
--- NOTE | 2017-02-15 14:59 | Event Note ---
Date: 02/15/[address] Cobb thank you for asking us to participate in the care of this patient. Full consultation follow. 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 Patient and has 2 children.Patient allergic to pencillins,Codeine, Sulfur dioxide. Patient says she also has history of CHF and CVA. Impression: 1. Acute exacerbation of COPD. 2. Acute bronchitis PLAN: 1.O2 2 litres via nasal canula. 2. ABGs on room air. 3. Albuterol/atrovent aerosol treatments q 6 hours 4. Continue I/V solumedral 5. Continue Levaquine. 6. Continue S/C Lovenox.
--- NOTE | 2017-02-15 20:07 | Progress Note ---
Assessment and Plan Patient says breathing some what better today. Patient not using O2 as requested. Recommend to use O2 all the time. - Patient Problems (1) COPD (chronic obstructive pulmonary disease) Current Visit: Yes Status: Acute Plan to address problem: O2 2 litres via nasal canula Albuterol/atrovent aerosol treatments q 6 hours. Continue I/V solumedral Continue S/C Lovenox. (2) Acute bronchitis Current Visit: Yes Status: Acute Plan to address problem: Patient is on Levaquine. Subjective Date of service: 02/15/17 Interval history: Patient says breathing some what better today. Patient not using O2 as requested. Recommend to use O2 all the time. Objective Vital Signs - 12hr 02/15/17 02/15/17 02/15/17 10:00 10:11 10:21 Pulse Rate Pulse Rate [ 66 70 Anterior Bilateral Throughout] Respiratory 20 20 Rate [Anterior Bilateral Throughout] O2 Sat by Pulse 98 Oximetry 02/15/17 02/15/17 02/15/17 12:00 15:38 15:48 Pulse Rate 96 H Pulse Rate [ 78 87 Anterior Bilateral Throughout] Respiratory 18 20 Rate [Anterior Bilateral Throughout] O2 Sat by Pulse Oximetry Constitutional: no acute distress, alert Eyes: non-icteric ENT: oropharynx moist Neck: supple, no lymphadenopathy Ascultation: Bilateral: diminished breath sounds Cardiovascular: regular rate and rhythm Gastrointestinal: normoactive bowel sounds, soft, non-tender Integumentary: normal Extremities: no cyanosis, no edema Neurologic: non-focal exam, pupils equal and round, CN II-XII normal Psychiatric: mood appropriate CBC and BMP: 02/14/17 21:50 02/14/17 21:50 ABG, PT/INR, D-dimer: ABG POC ABG pH 7.401 (7.35-7.45) 02/14/17 23:39 POC ABG pCO2 47.8 (35-45) H 02/14/17 23:39 POC ABG pO2 132 (80-105) H 02/14/17 23:39 POC ABG HCO3 29.7 02/14/17 23:39 POC ABG Total CO2 31 02/14/17 23:39 POC ABG O2 Sat 99 02/14/17 23:39 PT/INR, D-dimer PT 14.5 Sec. (12.2-14.9) 02/14/17 21:50 INR 1.07 (0.87-1.13) 02/14/17 21:50 Abnormal lab findings: Abnormal Labs 02/14/17 02/14/17 02/14/17 21:50 21:50 21:50 [place] % (Auto) 7.9 H Lymph # 1.1 L Seg Neutrophils % 75.7 H APTT 37.7 H POC ABG pCO2 POC ABG pO2 Potassium 3.5 L Chloride 97.8 L Creatinine 0.4 L Glucose 120 H CK-MB (CK-2) Rel Index 5.2 H NT-Pro-B Natriuret Pep 1477 H Albumin 3.6 L 02/14/17 02/15/17 02/15/17 23:39 02:18 08:17 [place] % (Auto) Lymph # Seg Neutrophils % APTT POC ABG pCO2 47.8 H POC ABG pO2 132 H Potassium Chloride Creatinine Glucose CK-MB (CK-2) Rel Index 5.4 H 5.3 H NT-Pro-B Natriuret Pep Albumin Chest x-ray: report reviewed (Negative single view of the chest has been reported.), image reviewed
[2017-02-15] MEDS ORDERED: PROVENTIL IH PRN (22:24)
[2017-02-16] MEDS ORDERED: LEVAQUIN 500MG/100ML 500 MG/100 ML BAG IV SCH (01:00)
[2017-02-16 06:21] LABS: Hematocrit 33.2 % (30.3-42.9); Hemoglobin 11.1 gm/dl (10.1-14.3); Mean Corpuscular HGB Conc 34 % (30-34); Mean Corpuscular Hemoglobin 29 pg (28-32); Mean Corpuscular Volume 87 fl (79-97); Platelet Count 157 K/mm3 (140-440); Red Blood Count 3.83 M/mm3 (3.65-5.03); Red Cell Distribution Width 14.7 % (13.2-15.2); White Blood Count 9.1 K/mm3 (4.5-11.0)
[2017-02-16 06:35] LABS: BUN/Creatinine Ratio 33; Blood Urea Nitrogen 13 mg/dL (7-17); Calcium 8.8 mg/dL (8.4-10.2); Carbon Dioxide 31 mmol/L (22-30); Glucose 144 mg/dL (65-100)
[2017-02-16 06:36] LABS: Anion Gap 10 mmol/L; Chloride 102.2 mmol/L (98-107); Potassium 3.4 mmol/L (3.6-5.0); Sodium 140 mmol/L (137-145)
[2017-02-16 07:36] LABS: Anisocytosis 1+; Basophils % (Manual) 0 % (0.0-1.8); Blastocytes % (Manual) 0 %; Diff Status Complete; Eosinophils % (Manual) 0 % (0.0-4.3); Ovalocytes 1+; Total Cells Counted Percent 0
--- NOTE | 2017-02-16 07:39 | Event Note ---
Date: 02/15/17 PATIENT SEEN AND EXAMINED, STATES IMPROVING, CONTINUE CURRENT TREATMENT.
--- NOTE | 2017-02-16 07:47 | Consultation ---
CONSULTED BY : Dr. Angel Cobb. RESOURCE RECOVERY ENGINEER: Bassam Briceño MD REASON FOR CONSULTATION: Exacerbation of chronic obstructive pulmonary disease and acute bronchitis. HISTORY OF PRESENT ILLNESS: Dr. Cobb, thank you for asking me to participate in the care of this patient. This is a 61-year-old white female with a history of COPD who is admitted with shortness of breath and a cough. The patient has a heavy history of smoking one and an half pack a day for 40 years. I counseled her to stop smoking. 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 The patient denies other medical problems. PAST MEDICAL HISTORY: The patient has a history of CHF and CVA. She denies other medical problems. SOCIAL HISTORY: The patient is and has 2 children. ALLERGIES: ALLERGIC TO PENICILLIN, CODEINE AND SULFUR. REVIEW OF SYSTEMS: The patient said she was recently admitted and discharged to home. The patient came back with a complaint of shortness of breath and cough. IMAGING: The patient's chest x-ray reported as negative chest x-ray. LABORATORY DATA: The patient's blood work and CBC is not remarkable except monos at 7.9, which is slightly high and segmented neutrophils is 75.6, is also slightly high: The patient's PT 14.5, INR is 1.07, PTT 37.7. The patient's blood gas is pH 7.4, pCO2 is 48, pO2 is 132, bicarbonate is 30 and O2 saturation 99% on 40% FIO2. The patient's CMP: Sodium 139, potassium 3.5, BUN 7, creatinine 0.4, glucose 120 and albumin 3.6 and CPK-MB is 5.2. The patient's urinalysis is not remarkable. PHYSICAL EXAMINATION: GENERAL: The patient is alert, awake, no acute respiratory distress at rest. VITAL SIGNS: Temperature is 99, pulse 78, and respiration rater is 18, and O2 saturation 97% on 2 liters O2 and the patient's blood pressure is 125/84. EYES: Pupils reactive to the light. MOUTH: No exudates. NECK: Supple, no lymphadenopathy. HEART: Regular rate and rhythm. LUNGS: Prolonged expiratory phase and few rhonchi. ABDOMEN: Soft, bowel sounds present. No CVA tenderness. MUSCULOSKELETAL: No edema, no clubbing, no cyanosis. NEUROLOGIC: DTR equal and reactive. Babinski negative. No focal neurological deficits. IMPRESSION: 1. Acute exacerbation of chronic obstructive pulmonary disease. 2. Acute bronchitis. PLAN: 1. O2 2 liters via nasal cannula. 2. ABGs on room air. 3. Albuterol and Atrovent aerosol treatments q. 6 hours. 4. Continue IV Solu-Medrol. 5. Continue Levaquin. 6. Continue subcutaneous Lovenox. PFTs as an outpatient. I want to thank Dr. Cobb for this consultation. I will follow the patient with him. JOB# [id number] RSM/NTS
[2017-02-16] MEDS: DUONEB *Not for PRN Use IH SCH ×3 (08:00→20:10)
[2017-02-16 11:13] LABS: ISTAT Base Excess 6; ISTAT DEVICE 0; ISTAT HCO3 30.3; ISTAT PCO2 43.6 (35-45); ISTAT PO2 68 (80-105); ISTAT SO2 94; ISTAT TCO2 32
[2017-02-16] MEDS: LOVENOX SUB-Q SCH (11:26)
--- NOTE | 2017-02-16 13:42 | Progress Note ---
Assessment and Plan Acute on chronic respiratory failure with hypoxia AECOPD SIRS Acute Bronchitis Tobacco abuse - continue systemic steroid taper - continue bronchodilators and pulmonary toilet - complete course of empiric CAP AB's - titrate supplemental oxygen to keep sats > 90% - tobacco abstinence counselled - GI & VTE prophylaxis - d/c planning ok respiratory-schmitz Subjective Date of service: 02/16/17 Principal diagnosis: Acute on Chronic Hypoxemic Resp Failure; Acute COPD exacerbation Interval history: Patient is seen today for: Acute on Chronic Hypoxemic Resp Failure; Acute COPD exacerbation Seen and examined at bedside; 24hour events reviewed; nursing and respiratory care staff consulted; no adverse overnight events reported to me; denies acute chesdt pains or increased SOB; No N/V/F/C Objective Vital Signs - 12hr 02/16/17 02/16/17 02/16/17 04:00 04:29 08:00 Temperature 97.8 F Pulse Rate 69 69 Pulse Rate [ 71 Anterior Bilateral Throughout] Respiratory 18 Rate Respiratory 18 Rate [Anterior Bilateral Throughout] Blood Pressure 129/69 [Right] O2 Sat by Pulse 95 Oximetry 02/16/17 02/16/17 08:01 11:01 Temperature Pulse Rate 58 L Pulse Rate [ Anterior Bilateral Throughout] Respiratory Rate Respiratory Rate [Anterior Bilateral Throughout] Blood Pressure [Right] O2 Sat by Pulse 96 Oximetry Constitutional: no acute distress, alert Eyes: non-icteric ENT: oropharynx moist Neck: supple, no lymphadenopathy, no JVD, other (no thyromegaly) Effort: mildly labored Ascultation: Bilateral: clear, diminished breath sounds Percussion: Bilateral: not dull Cardiovascular: regular rate and rhythm, other (no rubs / murmurs) Gastrointestinal: normoactive bowel sounds, soft, non-tender, non-distended, other (No HSM) Integumentary: normal Extremities: no cyanosis, no edema, pulses normal, no ischemia or petechiae Neurologic: non-focal exam, pupils equal and round, CN II-XII normal, motor strength normal and Psychiatric: mood appropriate, affect normal CBC and BMP: 02/16/17 05:59 02/17/17 05:53 ABG, PT/INR, D-dimer: ABG POC ABG pH 7.450 (7.35-7.45) 02/16/17 11:08 POC ABG pCO2 43.6 (35-45) 02/16/17 11:08 POC ABG pO2 68 (80-105) L 02/16/17 11:08 POC ABG HCO3 30.3 02/16/17 11:08 POC ABG Total CO2 32 02/16/17 11:08 POC ABG O2 Sat 94 02/16/17 11:08 PT/INR, D-dimer PT 14.5 Sec. (12.2-14.9) 02/14/17 21:50 INR 1.07 (0.87-1.13) 02/14/17 21:50 Abnormal lab findings: Abnormal Labs 02/14/17 02/14/17 02/14/17 21:50 21:50 21:50 [place] % (Auto) 7.9 H Lymph # 1.1 L Seg Neutrophils % 75.7 H Seg Neuts % (Manual) Lymphocytes % (Manual) Seg Neutrophils # Man Lymphocytes # (Manual) APTT 37.7 H POC ABG pCO2 POC ABG pO2 Potassium 3.5 L Chloride 97.8 L Carbon Dioxide Creatinine 0.4 L Glucose 120 H CK-MB (CK-2) Rel Index 5.2 H NT-Pro-B Natriuret Pep 1477 H Albumin 3.6 L 02/14/17 02/15/17 02/15/17 23:39 02:18 08:17 [place] % (Auto) Lymph # Seg Neutrophils % Seg Neuts % (Manual) Lymphocytes % (Manual) Seg Neutrophils # Man Lymphocytes # (Manual) APTT POC ABG pCO2 47.8 H POC ABG pO2 132 H Potassium Chloride Carbon Dioxide Creatinine Glucose CK-MB (CK-2) Rel Index 5.4 H 5.3 H NT-Pro-B Natriuret Pep Albumin 02/16/17 02/16/17 02/16/17 05:59 05:59 11:08 [place] % (Auto) Lymph # Seg Neutrophils % Seg Neuts % (Manual) 92.0 H Lymphocytes % (Manual) 7.0 L Seg Neutrophils # Man 8.4 H Lymphocytes # (Manual) 0.6 L APTT POC ABG pCO2 POC ABG pO2 68 L Potassium 3.4 L Chloride Carbon Dioxide 31 H Creatinine 0.4 L Glucose 144 H CK-MB (CK-2) Rel Index NT-Pro-B Natriuret Pep Albumin Chest x-ray: image reviewed Allied health notes reviewed: nursing
--- NOTE | 2017-02-16 17:19 | Progress Note ---
Assessment and Plan Assessment and plan: 61 year old woman with history of COPD who quit smoking 2 weeks ago comes to the emergency room with complaints of shortness of breath. She has been using nebulizer treatments without any improvement. She was recently discharged from the hospital for shortness of breath following intubation and appears she was seen also at an outside facility. Acute on chronic respiratory failure with hypoxia COPD exacerbation SIRS secondary to Acute Bronchitis Acute Bronchitis Tobacco abuse Plan * Supportive care, continue oxygen considering hypoxia on ABG. * Home o2 eval prior to discharge * Shannon IV steroids * Change abx to oral * Continue Dounebs * Anticipate discharge in am * Extensive counselling provided to the patient about tobacco use and she verbalized understanding. * DVT History Interval history: Patient seen and examined in no acute distress. Denies any chest pain, still with mild shortness of breath. Hospitalist Physical - Constitutional Vitals: Temp Pulse Resp BP Pulse Ox 97.8 F 73 16 129/69 96 02/16/17 04:29 02/16/17 15:20 02/16/17 15:20 02/16/17 04:29 02/16/17 08:01 General appearance: Present: mild distress, well-nourished - EENT Eyes: Present: PERRL, EOM intact ENT: hearing intact, clear oral mucosa, dentition normal - Neck Neck: Present: supple, normal ROM - Respiratory Respiratory effort: normal Respiratory: bilateral: diminished - Cardiovascular Rhythm: regular Heart Sounds: Present: S1 & S2. Absent: systolic murmur, diastolic murmur - Extremities Extremities: no ischemia, pulses intact, pulses symmetrical, No edema, normal temperature, normal color Peripheral Pulses: within normal limits - Abdominal General gastrointestinal: soft, non-tender, non-distended, normal bowel sounds - Integumentary Integumentary: Present: clear, warm, dry - Psychiatric Psychiatric: appropriate mood/affect, intact judgment & insight, cooperative - Neurologic Neurologic: CNII-XII intact, moves all extremities - Allied Health Allied health notes reviewed: nursing Results - Labs CBC & Chem 7: 02/16/17 05:59 02/16/17 05:59 Labs: Laboratory Last Values WBC 9.1 K/mm3 (4.5-11.0) 02/16/17 05:59 RBC 3.83 M/mm3 (3.65-5.03) 02/16/17 05:59 Hgb 11.1 gm/dl (10.1-14.3) 02/16/17 05:59 Hct 33.2 % (30.3-42.9) 02/16/17 05:59 MCV 87 fl (79-97) 02/16/17 05:59 MCH 29 pg (28-32) 02/16/17 05:59 MCHC 34 % (30-34) 02/16/17 05:59 RDW 14.7 % (13.2-15.2) 02/16/17 05:59 Plt Count 157 K/mm3 (140-440) 02/16/17 05:59 Lymph % (Auto) 15.5 % (13.4-35.0) 02/14/17 21:50 [place] % (Auto) 7.9 % (0.0-7.3) H 02/14/17 21:50 Eos % (Auto) 0.5 % (0.0-4.3) 02/14/17 21:50 Baso % (Auto) 0.4 % (0.0-1.8) 02/14/17 21:50 Lymph # 1.1 K/mm3 (1.2-5.4) L 02/14/17 21:50 [place] # 0.6 K/mm3 (0.0-0.8) 02/14/17 21:50 Eos # 0.0 K/mm3 (0.0-0.4) 02/14/17 21:50 Baso # 0.0 K/mm3 (0.0-0.1) 02/14/17 21:50 Add Manual Diff Complete 02/16/17 05:59 Total Counted 100 02/16/17 05:59 Seg Neutrophils % Cmo & President 02/16/17 05:59 Seg Neuts % (Manual) 92.0 % (40.0-70.0) H 02/16/17 05:59 Band Neutrophils % 1.0 % 02/16/17 05:59 Lymphocytes % (Manual) 7.0 % (13.4-35.0) L 02/16/17 05:59 Reactive Lymphs % (Man) 0 % 02/16/17 05:59 Monocytes % (Manual) 0 % (0.0-7.3) 02/16/17 05:59 Eosinophils % (Manual) 0 % (0.0-4.3) 02/16/17 05:59 Basophils % (Manual) 0 % (0.0-1.8) 02/16/17 05:59 Metamyelocytes % 0 % 02/16/17 05:59 Myelocytes % 0 % 02/16/17 05:59 Promyelocytes % 0 % 02/16/17 05:59 Blast Cells % 0 % 02/16/17 05:59 Nucleated RBC % Not Reportable 02/16/17 05:59 Seg Neutrophils # 5.4 K/mm3 (1.8-7.7) 02/14/17 21:50 Seg Neutrophils # Man 8.4 K/mm3 (1.8-7.7) H 02/16/17 05:59 Band Neutrophils # 0.1 K/mm3 02/16/17 05:59 Lymphocytes # (Manual) 0.6 K/mm3 (1.2-5.4) L 02/16/17 05:59 Abs React Lymphs (Man) 0.0 K/mm3 02/16/17 05:59 Monocytes # (Manual) 0.0 K/mm3 (0.0-0.8) 02/16/17 05:59 Eosinophils # (Manual) 0.0 K/mm3 (0.0-0.4) 02/16/17 05:59 Basophils # (Manual) 0.0 K/mm3 (0.0-0.1) 02/16/17 05:59 Metamyelocytes # 0.0 K/mm3 02/16/17 05:59 Myelocytes # 0.0 K/mm3 02/16/17 05:59 Promyelocytes # 0.0 K/mm3 02/16/17 05:59 Blast Cells # 0.0 K/mm3 02/16/17 05:59 WBC Morphology Not Reportable 02/16/17 05:59 Hypersegmented Neuts Not Reportable 02/16/17 05:59 Hyposegmented Neuts Not Reportable 02/16/17 05:59 Hypogranular Neuts Not Reportable 02/16/17 05:59 Smudge Cells Not Reportable 02/16/17 05:59 Toxic Granulation Not Reportable 02/16/17 05:59 Toxic Vacuolation Not Reportable 02/16/17 05:59 Dohle Bodies Not Reportable 02/16/17 05:59 Pelger-Huet Anomaly Not Reportable 02/16/17 05:59 Angeline Rods Not Reportable 02/16/17 05:59 Platelet Estimate Appears normal 02/16/17 05:59 Clumped Platelets Not Reportable 02/16/17 05:59 Plt Clumps, EDTA Not Reportable 02/16/17 05:59 Large Platelets Not Reportable 02/16/17 05:59 Giant Platelets Not Reportable 02/16/17 05:59 Platelet Satelliting Not Reportable 02/16/17 05:59 Plt Morphology Comment Not Reportable 02/16/17 05:59 RBC Morphology Not Reportable 02/16/17 05:59 Dimorphic RBCs Not Reportable 02/16/17 05:59 Polychromasia Not Reportable 02/16/17 05:59 Hypochromasia Not Reportable 02/16/17 05:59 Poikilocytosis Not Reportable 02/16/17 05:59 Anisocytosis 1+ 02/16/17 05:59 Microcytosis Not Reportable 02/16/17 05:59 Macrocytosis Not Reportable 02/16/17 05:59 Spherocytes Not Reportable 02/16/17 05:59 Pappenheimer Bodies Not Reportable 02/16/17 05:59 Sickle Cells Not Reportable 02/16/17 05:59 Target Cells Not Reportable 02/16/17 05:59 Tear Drop Cells Not Reportable 02/16/17 05:59 Ovalocytes 1+ 02/16/17 05:59 Helmet Cells Not Reportable 02/16/17 05:59 [place] Bodies Not Reportable 02/16/17 05:59 [place] Rings Not Reportable 02/16/17 05:59 [place] Cells Not Reportable 02/16/17 05:59 Bite Cells Not Reportable 02/16/17 05:59 Crenated Cell Not Reportable 02/16/17 05:59 Elliptocytes Not Reportable 02/16/17 05:59 Acanthocytes (Spur) Not Reportable 02/16/17 05:59 Rouleaux Not Reportable 02/16/17 05:59 Hemoglobin C Crystals Not Reportable 02/16/17 05:59 Schistocytes Not Reportable 02/16/17 05:59 Malaria parasites Not Reportable 02/16/17 05:59 Abrahan Bodies Not Reportable 02/16/17 05:59 Hem Pathologist Commnt No 02/16/17 05:59 PT 14.5 Sec. (12.2-14.9) 02/14/17 21:50 INR 1.07 (0.87-1.13) 02/14/17 21:50 APTT 37.7 Sec. (24.2-36.6) H 02/14/17 21:50 POC ABG pH 7.450 (7.35-7.45) 02/16/17 11:08 POC ABG pCO2 43.6 (35-45) 02/16/17 11:08 POC ABG pO2 68 (80-105) L 02/16/17 11:08 POC ABG HCO3 30.3 02/16/17 11:08 POC ABG Total CO2 32 02/16/17 11:08 POC ABG O2 Sat 94 02/16/17 11:08 POC ABG Base Excess 6 02/16/17 11:08 FiO2 21 % 02/16/17 11:08 Sodium 140 mmol/L (137-145) 02/16/17 05:59 Potassium 3.4 mmol/L (3.6-5.0) L 02/16/17 05:59 Chloride 102.2 mmol/L (98-107) 02/16/17 05:59 Carbon Dioxide 31 mmol/L (22-30) H 02/16/17 05:59 Anion Gap 10 mmol/L 02/16/17 05:59 BUN 13 mg/dL (7-17) 02/16/17 05:59 Creatinine 0.4 mg/dL (0.7-1.2) L 02/16/17 05:59 Estimated GFR > 60 ml/min 02/16/17 05:59 BUN/Creatinine Ratio 33 % 02/16/17 05:59 Glucose 144 mg/dL (65-100) H 02/16/17 05:59 Calcium 8.8 mg/dL (8.4-10.2) 02/16/17 05:59 Total Bilirubin 0.50 mg/dL (0.1-1.2) 02/14/17 21:50 AST 27 units/L (5-40) 02/14/17 21:50 ALT 15 units/L (7-56) 02/14/17 21:50 Alkaline Phosphatase 104 units/L (35-129) 02/14/17 21:50 Total Creatine Kinase 58 units/L (30-135) 02/15/17 08:17 CK-MB (CK-2) 3.1 ng/mL (0.0-4.0) 02/15/17 08:17 CK-MB (CK-2) Rel Index 5.3 (0-4) H 02/15/17 08:17 Troponin T < 0.010 ng/mL (0.00-0.029) 02/15/17 Unknown NT-Pro-B Natriuret Pep 1477 pg/mL (0-900) H 02/14/17 21:50 Total Protein 6.9 g/dL (6.3-8.2) 02/14/17 21:50 Albumin 3.6 g/dL (3.9-5) L 02/14/17 21:50 Albumin/Globulin Ratio 1.1 % 02/14/17 21:50 Urine Color Yellow (Yellow) 02/15/17 01:10 Urine Turbidity Clear (Clear) 02/15/17 01:10 Urine pH 6.0 (5.0-7.0) 02/15/17 01:10 Ur Specific [place] 1.009 (1.003-1.030) 02/15/17 01:10 Urine Protein <15 mg/dl mg/dL (Negative) 02/15/17 01:10 Urine Glucose (UA) Neg mg/dL (Negative) 02/15/17 01:10 Urine Ketones Neg mg/dL (Negative) 02/15/17 01:10 Urine Blood Neg (Negative) 02/15/17 01:10 Urine Nitrite Neg (Negative) 02/15/17 01:10 Urine Bilirubin Neg (Negative) 02/15/17 01:10 Urine Urobilinogen < 2.0 mg/dL (<2.0) 02/15/17 01:10 Ur Leukocyte Esterase Neg (Negative) 02/15/17 01:10 Urine WBC (Auto) 1.0 /HPF (0.0-6.0) 02/15/17 01:10 Urine RBC (Auto) 1.0 /HPF (0.0-6.0) 02/15/17 01:10 U Epithel Cells (Auto) < 1.0 /HPF (0-13.0) 02/15/17 01:10 Urine Bacteria (Auto) 1+ /HPF (Negative) 02/15/17 01:10 Urine Mucus Few /HPF 02/15/17 01:10 - Imaging and Cardiology Chest x-ray: image reviewed (right access)
[2017-02-16] MEDS ORDERED: LEVAQUIN PO SCH (22:00)
[2017-02-17 06:33] LABS: Anion Gap 12 mmol/L; BUN/Creatinine Ratio 32; Blood Urea Nitrogen 16 mg/dL (7-17); Calcium 8.4 mg/dL (8.4-10.2); Carbon Dioxide 32 mmol/L (22-30); Chloride 102.6 mmol/L (98-107); Glucose 131 mg/dL (65-100); Potassium 3.6 mmol/L (3.6-5.0); Sodium 143 mmol/L (137-145)
[2017-02-17] MEDS: DUONEB *Not for PRN Use IH SCH ×2 (07:04→15:06)
[2017-02-17] MEDS: LOVENOX SUB-Q SCH (10:00)
--- NOTE | 2017-02-17 11:34 | Discharge Summary ---
<JUAN A BAXTER - Last Filed: 02/17/17 11:30> Providers - Providers Date of Admission: 02/15/17 02:10 Date of discharge: 02/17/17 Attending physician: ERIS BLAKELY MD 02/15/17 11:30 Consult to Physician [CONS] Routine Consulting Provider: JASMINE DOYLE Reason For Exam: copd exacerabation Place consult to:: Dr. Doyle Notified:: Shakira POLANCO Phone number called:: Was contact made?: Yes If yes, spoke with:: Danika-Office Time called:: 12:46 Primary care physician: MAURICE MCCLURE Hospitalization Condition: Stable Hospital course: 61 year old woman with history of COPD who quit smoking 2 weeks ago comes to the emergency room with complaints of shortness of breath. She has been using nebulizer treatments without any improvement. She was recently discharged from the hospital for shortness of breath following intubation and appears she was seen also at an outside facility Chest Xray was negative for acute processes. Patient was treated with Duoneb, IV steroids, antibiotics and was stabilized. Discharge Diagnosis Acute on chronic respiratory failure with hypoxia COPD exacerbation SIRS secondary to Acute Bronchitis Acute Bronchitis Tobacco abuse Disposition: DC-01 TO HOME OR SELFCARE Core Measure Documentation - Palliative Care Palliative Care/ Comfort Measures: Not Applicable - Core Measures Any of the following diagnoses?: none Exam - Constitutional Vitals: Temp Pulse Resp BP Pulse Ox 97.5 F L 94 H 18 131/69 93 02/17/17 07:15 02/17/17 07:15 02/17/17 07:15 02/17/17 07:15 02/17/17 07:15 General appearance: Present: no acute distress, well-nourished - EENT ENT: hearing intact, clear oral mucosa, poor dentition - Neck Neck: Present: supple, normal ROM - Respiratory Respiratory effort: normal Respiratory: bilateral: diminished - Cardiovascular Heart Sounds: Present: S1 & S2. Absent: rub, click - Extremities Extremities: pulses symmetrical, No edema Peripheral Pulses: within normal limits - Abdominal General gastrointestinal: Present: soft, non-tender, non-distended, normal bowel sounds Female genitourinary: Present: deferred - Rectal Rectal Exam: deferred - Integumentary Integumentary: Present: clear, warm, dry - Musculoskeletal Musculoskeletal: gait normal, strength equal bilaterally - Psychiatric Psychiatric: appropriate mood/affect, intact judgment & insight - Neurologic Neurologic: CNII-XII intact, moves all extremities - Allied Health Allied health notes reviewed: nursing Plan Weight Bearing Status: Weight Bear as Tolerated Diet: low fat, low cholesterol Special Instructions: smoking cessation Follow up with: MAURICE MCCLURE MD [Primary Care Provider] - 3-5 Days KENISHA WALTON MD [Staff Physician] - 7 Days Prescriptions: Prednisone [predniSONE 10 mg (6-Day Pack, 21 Tabs)] 10 mg PO .TAPER #1 tab.ds.pk <ERIS BLAKELY - Last Filed: 02/17/17 18:23> Providers - Providers Date of Admission: 02/15/17 02:10 Attending physician: ERIS BLAKELY MD 02/15/17 11:30 Consult to Physician [CONS] Routine Consulting Provider: JASMINE DOYLE Reason For Exam: copd exacerabation Place consult to:: Dr. Doyle Notified:: Shakira POLANCO Phone number called:: Was contact made?: Yes If yes, spoke with:: Danika-Office Time called:: 12:46 Primary care physician: MAURICE MCCLURE Hospitalization Reason for admission: SHORTNESS OF BREATH Hospital course: I saw and evaluated the patient. I agree with the findings and the plan of care as documented in the PHYSICIAN PET CARETAKER's~note, with the following corrections and additions. pATIENT WAS TREATED FOR COPD EXACERBATION, NO EVIDENCE OF SPESIS WAS NOTED. SHE WAS GIVEN COUNSELING ABOUT TOBACCO USE AND SHE VERBALIZED UNDERSTANDING, SHE WILL FOLLOW WITH MEDICAL ASSISTANT SUPERVISOR OUTPATIENT. Time spent for discharge: 35 MINS Exam - Constitutional Vitals: Temp Pulse Resp BP Pulse Ox 97.6 F 86 20 125/67 97 02/17/17 11:13 02/17/17 15:16 02/17/17 15:16 02/17/17 11:13 02/17/17 11:13
[2017-02-17 11:57] VITALS: BP 125/67
--- NOTE | 2017-02-22 14:58 | Query-Infection ---
Dear Jordyn Date:___02/22/17 Platinum Smith/CDS:____Daisy / Nelson Phone#:__[phone] Exercise your independent professional judgment when responding to this query. Questions asked do not imply a particular answer is desired or expected. We greatly appreciate your clarification on this issue. Clinical Documentation States: 61 year old female was admitted on 02/16/17 The progress note (Dr. Cobb) states " 61 year old woman with history of COPD who quit smoking 2 weeks ago comes to the emergency room with complaints of shortness of breath. SIRS secondary to Acute Bronchitis " Temperature: 101.1 Pulse rate: 115 Respiratory rate: 23 Clinical findings show: (please check applicable parameters) Infection, known /suspected, with some of the following indicators; Specify the infection: 3 General parameters [x ] Fever (core temp >38.30C or 100.40F) [ ] Hypothermia (core temp <36C) [x ] Heart rate >90 bpm [x ] Tachypnea: >20 bpm or pCO2 < 32 mmHg [ ] Altered mental status [ ] Significant edema / +ve fluid balance (>20 ml/kg 24 h) [ ] Hyperglycemia (Bl. glucose >110 mg/dl) w/o diabetes Inflammatory parameters [ ] Leukocytosis (white blood cell count >12,000/l) [ ] Leukopenia (white blood cell count <4,000/l) [ ] Bandemia (immature WBC > 10%) [ ] Leucocyte Left Shift [ ] Plasma procalcitonin>2 SD above the normal value Hemodynamic and tissue perfusion parameters [ ] Arterial hypotension(SBP <90 mmHg, MAP <70 mmHg,or a SBP drop >40 mmHg in adults) [ ] Hyperlactatemia (>3 mmol/l) [ ] Anion Gap (> 11mEG/l) [ ] Decreased capillary refill or mottling Organ dysfunction parameters [ ] Arterial hypoxemia (PaO2/FIO2 <300) [ ] Creatinine increase =0.5 mg/dl [ ] Acute oliguria (urine output <0.5 ml | kg |h or 45 mM/l for at least 2 hrs) [ ] Coagulation abnormalities (INR >1.5 or activated partial thromboplastin time >60 s) [ ] Ileus (absent albino wel sounds) [ ] Thrombocytopenia (platelet count <100,000/l) [ ] Hyperbilirubinemia (plasma total bilirubin >4 mg/dl) According to the clinical indications above, can Bacteremia be further specified? If so, please indicate below and in your Progress Notes and/ or Discharge Summary. Indicate if the condition was present on admission. PHYSICIAN RESPONSE: [X ] Sepsis [ ] Severe Sepsis [ ] Septic Shock [ ] Septicemia [ ] Sepsis now resolved [ ] SIRS due to non-infectious cause with organ dysfunction [ ] SIRS due to non-infectious cause without organ dysfunction [ ] Other: [ ] Comment/Explanation: Present on Admission: [X ] Yes (Y) [ ] Clinically undeterminable (W) [ ] No (N) [ ] Ruled Out Please also document response in your Progress Notes and/or Discharge Summary and indicate if the condition was present on admission Notes: SIRS/ SIRS WITH ORGAN DYSFUNCTION Systemic inflammatory response syndrome (SIRS) generally refers to the systemic response to trauma/singh or other insult such as Acute Myocardial Infarction, Acute Pancreatitis, and Major Surgery with symptoms including fever, tachycardia , tachypnea, and leukocytosis (1). BACTEREMIA Presence of viable bacteria in the circulating blood (2). This term is reserved for patients that do not manifest above SIRS response. SEPTICEMIA Generally refers to a systemic disease associated with the presence of pathological microorganisms or toxins in the blood, which can include bacteria, viruses, fungi or other organisms (1). SEPSIS Generally refers to SIRS due infection (1). SEVERE SEPSIS Generally refers to sepsis associated with acute organ dysfunction (1). SEPTIC SHOCK Generally refers to circulatory failure associated with severe sepsis (2), and defined as hypotension or hypoperfusion despite adequate fluid resuscitation (1 hour) (3). REFERENCES: 1. [place] [employer]/Society of Critical Care Medicine Consensus Conference. Definitions for sepsis and organ failure and guidelines for the use of innovative therapies in sepsis. Critical Care Med 1992;20:864 - 74. 2. Tapan fermin MM, Kushal MP, Hermann DANIKA, Kavin E, Justin D, Paul D, Carlos J, Ale BRYAN , Mario BROOKE, Grecia G; International Sepsis Definitions Conference. 2001 SCCM/ESICM/ACCP/ATS/SIS International Sepsis Definitions Conference. Intensive Care Med. 2002;29(4):530-8. Epub 2002May 31. Review. PubMed PMID:[id number] 3. ICD-9-CM Official Guidelines for Coding and Reporting 4. Medscape Drugs, Diseases and Procedures references 5. [employer] Textbook of Internal Medicine. 18th Edition MTDD
--- NOTE | 2017-02-22 15:12 | Query- Heart Failure ---
John Craft____Jordyn Date:____02/22/17 Angle Furnaceman/CDS:____Daisy / Nelson Phone#:__[phone] Exercise your independent professional judgment when responding to query. Questions asked do not imply a particular answer is desired or expected. We greatly appreciate your clarification on this issue. Clinical Documentation States: 61 year old female was admitted on 02/15/17 The Event note (02/15/17 Dr. Briceño) states " patient says she also has history of CHF and CVA " The progress note (Dr. Cobb 02/16/17) states " 61 year old woman with history of COPD who quit smoking 2 weeks ago comes to the emergency room with complaints of shortness of breath. Acute on chronic respiratory failure with hypoxia " Clinical Findings Show: BNP: 1477 Medication: IV lasix If possible, Please Clarify if you mean: Acuity: [ ] Acute [ ] Acute on Chronic [ ] Chronic Type: [ ] Systolic Heart Failure [ ] Diastolic Heart Failure [ ] Combined Heart Failure [ ] Other: Present on Admission: [ ] Yes (Y) [ X] Clinically undeterminable (W) [ ] No (N) Please also document response in your Progress Notes and/or Discharge Summary and indicate if the condition was present on admission. ALYCE
== END 2017-02-17 17:00 | disposition home health service (06) | DRG 871 ==
LOC: ED 21:07 → 4A 02-15 02:10
PROVIDERS: ADMIT Internal Medicine; ATTEND Internal Medicine
PROC: 5A09357 Assistance with Respiratory Ventilation, Less than 24 Consecutive Hours, Continuous Positive Airway Pressure (ICD-10-PCS; 2017-02-14)
PROC: 02HV33Z Insertion of Infusion Device into Superior Vena Cava, Percutaneous Approach (ICD-10-PCS; 2017-02-14)
PROC: 4A033R1 Measurement of Arterial Saturation, Peripheral, Percutaneous Approach (ICD-10-PCS; principal; 2017-02-16)
DX: A41.9 Sepsis, unspecified organism (principal); J96.21 Acute and chronic respiratory failure with hypoxia; J20.9 Acute bronchitis, unspecified; F17.200 Nicotine dependence, unspecified, uncomplicated; I11.0 Hypertensive heart disease with heart failure; J44.1 Chronic obstructive pulmonary disease with (acute) exacerbation; I50.9 Heart failure, unspecified; E87.6 Hypokalemia; J44.0 Chronic obstructive pulmonary disease with (acute) lower respiratory infection; Z86.73 Personal history of transient ischemic attack (TIA), and cerebral infarction without residual deficits; Z79.899 Other long term (current) drug therapy; Z98.51 Tubal ligation status; Z82.49 Family history of ischemic heart disease and other diseases of the circulatory system; Z88.0 Allergy status to penicillin; Z88.5 Allergy status to narcotic agent; Z88.2 Allergy status to sulfonamides; Z71.6 Tobacco abuse counseling
CPT/HCPCS: 36415; 36600; 71010; 80048; 80053; 81001; 82550; 82553; 82803; 83880; 84484; 85007; 85025; 85610; 85730; 87040; 93005; 93010; 94640; 96374; 96375; J1650; J1885; J1940; J1956; J2920; J2930

== ENCOUNTER 2021-04-22 07:16 | Emergency (ER) | payer MEDICARE ==
[2021-04-22] MEDS ORDERED: IPRATROPIUM/ALBUTEROL SULFATE 3 ML AMPUL.NEB IH ONE (07:28)
[2021-04-22] MEDS ORDERED: methylPREDNISolone Sod Succinate 125 MG/2 ML INJ IV ONE (07:28)
[2021-04-22] MEDS ORDERED: FUROSEMIDE 40 MG/4 ML INJ IV ONE (07:29)
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
--- NOTE | 2021-04-22 08:17 | XRay Report ---
CHEST 1 VIEW INDICATION: Dyspnea. COMPARISON: 02/14/2017 FINDINGS: Support devices: None. Right subclavian central line has been removed since the previous exam. Heart: Within normal limits. Lungs/Pleura: No acute air space or interstitial disease. No pleural abnormality or pneumothorax. Additional findings: None. IMPRESSION: No acute findings. Signer Name: Gerber Tanner Jr, MD Signed: 04/22/2021 8:13 AM Workstation Name: [id number]
[2021-04-22 08:21] LABS: Basophils % (Auto) 0.4 % (0.0-1.8); Eosinophils % (Auto) 0.1 % (0.0-4.3); Hematocrit 40.9 % (30.3-42.9); Hemoglobin 13.5 gm/dl (10.1-14.3); Lymphocytes # (Auto) 1.1 K/mm3 (1.2-5.4); Lymphocytes % (Auto) 11.1 % (13.4-35.0); Mean Corpuscular HGB Conc 33 % (30-34); Mean Corpuscular Volume 94 fl (79-97); Monocytes # (Auto) 0.6 K/mm3 (0.0-0.8); Monocytes % (Auto) 6.3 % (0.0-7.3); Platelet Count 149 K/mm3 (140-440); Red Blood Count 4.36 M/mm3 (3.65-5.03); Red Cell Distribution Width 13.3 % (13.2-15.2)
[2021-04-22 08:44] LABS: Alanine Aminotransferase 23 units/L (7-56); Albumin 4.6 g/dL (3.9-5); BUN/Creatinine Ratio 26; Blood Urea Nitrogen 23 mg/dL (7-17); Calcium 9.3 mg/dL (8.4-10.2); Hemolysis Index 10
[2021-04-22] MEDS ORDERED: levoFLOXacin 500 MG TAB PO ONE (09:21)
[2021-04-22 09:27] VITALS: BP 118/61
--- NOTE | 2021-04-22 13:23 | Electrocardiograph Report ---
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
== END 2021-04-22 10:01 | disposition home or self-care (01) ==
LOC: ED 07:16
DX: J44.1 Chronic obstructive pulmonary disease with (acute) exacerbation (principal); I10 Essential (primary) hypertension; I63.9 Cerebral infarction, unspecified; Z98.890 Other specified postprocedural states; Z87.891 Personal history of nicotine dependence
CPT/HCPCS: 36415; 71045; 80053; 83880; 84484; 85025; 93005; 93010; 94640; 96374; 96375; 99284; J1940; J2930; 94644